=== PATIENT | male | born 1965 | race Caucasian/White ===

== ENCOUNTER → 2020-09-17 14:32 | Outpatient (CLI) | payer OTHER, SELFPAY ==
[2020-09-17] MEDS: COVID-19 VACC #1, MRNA(MOD) 100 MCG/0.5 ML VIAL IM (14:41)
== END ==
PROVIDERS: PCP Nurse Practitioner Family; Visit Provider Internal Medicine
DX: Z23 Encounter for immunization (principal)
CPT/HCPCS: 0011A; 91301

== ENCOUNTER → 2020-10-15 14:14 | Outpatient (CLI) | payer OTHER, SELFPAY ==
[2020-10-15] MEDS: COVID-19 VACC #2, MRNA(MOD) 100 MCG/0.5 ML VIAL IM (14:18)
== END ==
PROVIDERS: PCP Nurse Practitioner Family; Visit Provider Internal Medicine
DX: Z23 Encounter for immunization (principal)
CPT/HCPCS: 0012A; 91301

== ENCOUNTER 2021-08-08 15:50 | Emergency (ER) | payer OTHER, SELFPAY ==
[2021-08-08] VITALS (9 sets, daily range): BP systolic 136–155; BP diastolic 80–95; PULSE 65–79; RESP 16–33; TEMP 36.6; O2SAT 98–100; BMI 26.4
--- NOTE | 2021-08-08 16:04 | DI.RAD.S_ITS ---
PROCEDURE: XR CHEST 2V INDICATIONS: chest pain TECHNIQUE: 2 views of the chest were acquired. COMPARISON: None. FINDINGS: Surgical changes and devices: Right upper quadrant cholecystectomy clips. Lungs and pleura: Lungs are clear. No pleural effusions or pneumothorax. Mediastinum: Mediastinal contours are normal. Heart size is normal. Bones and chest wall: No suspicious bony abnormalities. Soft tissues appear unremarkable. Mild irregularity of the midshaft of the left clavicle is likely secondary to prior trauma. IMPRESSION: No acute cardiopulmonary abnormality. Dictated by: Clifton Ayala M.D. on 08/08/2021 at 16:45 Approved by: Clifton Ayala M.D. on 08/08/2021 at 16:46
[2021-08-08 16:25] LABS: Add Manual Diff / Slide Review NO; Basophils Absolute Auto 100 /uL (0-100); Basophils Percent Auto 1.2 % (0-2); Eosinophils Absolute Auto 0 /uL (0-450); Eosinophils Percent Auto 0.4 % (2-4); Hematocrit 44.7 % (41-53); Lymphocytes Absolute Auto 1100 /uL (1100-4500); Lymphocytes Percent Auto 19.3 % (25-40); Mean Corpuscular HGB Conc 35.8 % (30-36); Mean Corpuscular Hemoglobin 31.6 PG (26-34); Mean Corpuscular Volume 88.3 fL (80-100); Monocytes Absolute Auto 400 /uL (0-900); Monocytes Percent Auto 7.2 % (3-14); Neutrophils Absolute Auto 4000 /uL (1500-7000); Neutrophils Percent Auto 71.9 % (50-75); Platelet Count 187 X10^3/uL (150-400); Red Blood Cell Count 5.06 X10^6/uL (4.5-5.9); Red Cell Distribution Width 12.3 % (11.6-14.8); White Blood Cell Count 5.6 X10^3/uL (4.5-11.0)
[2021-08-08 16:40] LABS: Alanine Aminotransferase 12 IU/L (<50); Albumin 4.9 g/dL (3.5-5.0); Albumin Globulin Ratio 1.5 (1.0-2.8); Alkaline Phosphatase 45 U/L (38-126); Aspartate Aminotransferase 18 IU/L (17-59); BUN Creatinine Ratio 9.9 (6-22); Bilirubin Total 0.6 mg/dL (0.2-1.3); Blood Urea Nitrogen 8 mg/dL (9-20); Calcium 9.4 mg/dL (8.4-10.2); Carbon Dioxide 25 mmol/L (22-32); Chloride 104 mmol/L (98-107); Creatine Kinase 31 U/L (55-170); Estimated Glomerular Filt Rate > 60.0 mL/min (>60); Globulin 3.2 g/dL (1.7-4.1); Glucose 179 mg/dL (70-100); HEMOLYSIS 20 (0-50); Lipase 82 U/L (23-300); Magnesium 1.8 mg/dL (1.6-2.3); Potassium 3.9 mmol/L (3.4-5.1); Sodium 139 mmol/L (137-145); Total Protein 8.1 g/dL (6.3-8.2)
[2021-08-08 16:52] LABS: Troponin I < 0.012 ng/mL (0.01-0.034)
[2021-08-08 17:16] LABS: COVID19 -Nasal RAPID Negative (Negative)
[2021-08-08] MEDS: ASPIRIN 81 MG CHEW TAB 324 MG PO (17:59)
--- NOTE | 2021-08-08 19:04 | ED.CHESTPAIN ---
HPI - Chest Pain General Chief Complaint: Chest Pain Stated Complaint: TROUBLE BREATHING CHEST PRESSURE Time Seen by Provider: 08/08/21 18:21 Source: patient Mode of arrival: Ambulatory Limitations: no limitations Limitations: no limitations History of Present Illness HPI narrative: 56-year-old male comes with complaint of chest pressure that started at 1:30 a.m. this morning. Patient states never resolved but changes with intensity. Body position seems to exacerbate or alleviate it. Lying flat makes it worse as well. He has some sensation of shortness of breath but does not feel like it is worse when he is lying flat. He sometimes gets sweaty at night but not consistently. He has not had any diaphoresis during the day. He has had some mild nausea, no vomiting. No issues with bowel movements or urination. No new swelling in his extremities. He states he is very tired he has not been able to sleep this is been a chronic problem but has been significantly worse recently he states he has been pacing the room. He states that it is worse at night. denies any fevers, cough cold or congestion. He did get use that his [id number]-nu-tqp had but that was at 10:30 a.m. this morning after his symptoms had started. He states he takes Tylenol p.m. for sleep but no other daily medications. He has had multiple orthopedic surgeries including plate in his neck, clavicle, bilateral knee and ankle repairs, cholecystectomy and kidney stones. He is allergic to penicillin. No tobacco, alcohol or illicit. He does not have a primary care physician. Both his parents of cancer, his father from pancreatic and his mother from leukemia/ovarian cancer. No known cardiac, embolic or pulmonary history. Patient does fly regularly for [place] the country. Related Data Home Medications Medication Instructions Recorded Confirmed diphenhydramine 25 1 tab PO BEDTIME 08/08/21 08/08/21 mg-acetaminophen 500 mg tablet (Tylenol PM Extra Strength) Allergies Allergy/AdvReac Type Severity Reaction Status Date / Time Penicillins Allergy Unknown Verified 08/08/21 16:02 Review of Systems Review of Systems ROS Unobtainable: All systems reviewed & are unremarkable except as noted in HPI and below Patient History Social History Smoking Status: Never smoker Smoking Status: Never smoker alcohol intake frequency: other Substance Use Type: marijuana Exam Narrative Exam Narrative: GENERAL: Alert and oriented x three, male in mild distress. HEENT: Head normocephalic, atraumatic, EOMI, pupils reactive, face symmetric, moist mucous membranes NECK: Supple, full range of motion CARDIOVASCULAR: Regular rate and rhythm without murmurs, rubs or gallops. Non reproducible chest pain. RESPIRATORY: Breath sounds equal bilaterally, patient had a single wheeze on the left, no rales or or rhonchi. No tachypnea accessory muscle use. Patient speaks in full sentences. ABDOMEN: Soft, nontender. Nondistended. Normoactive bowel sounds all 4 quadrants. No guarding or rebound, rigidity, no mass : No CVA tenderness EXTREMITIES: Normal range of motion, no clubbing or edema. Neurovascularly intact NEUROLOGICAL: Cranial nerves II through XII grossly intact. Moving all extremities SKIN: Warm, dry, no petechiae, no rashes or lesions. Initial Vital Signs Initial Vital Signs: Vital Signs Temperature 98 F 08/08/21 15:59 Pulse Rate 79 08/08/21 15:59 Respiratory Rate 17 08/08/21 15:59 Blood Pressure 151/95 H 08/08/21 15:59 Pulse Oximetry 99 08/08/21 15:59 Scores HEART Score Heart Score history: Slightly Suspicious Heart Score EKG: Normal Heart Score Age: 45-64 years old Heart Score risk factors: No known risk factors Heart Score troponin: < or = to normal limit Heart Score Total: 1 PERC Score Age greater than or equal to 50 years: Yes Heart rate greater than or equal to 100 bpm: No Room Air O2 Sat less than 95%: No Unilateral leg swelling: No Recent trauma or surgery: No Hemoptysis: No Prior PE or DVT: No Hormone Use: No Total PERC Score: 1 Course Orders Ordered: ED Orders 08/08/21 18:39 Troponin I Stat 08/08/21 19:31 EKG-12 Lead Stat 08/09/21 03:00 CT Stroke Stat Basic Metabolic Panel Stat Complete Blood Count AUTO DIFF Stat Ethanol (ETOH) Stat Troponin & CK Cardiac Panel Stat Urine Drug Screen, Rapid Stat EKG-12 Lead Stat 08/09/21 03:01 CT angio head and neck Stat Partial Thromboplastin Time Stat Prothrombin Time INR Stat Sodium Chloride (Normal Saline 0.9%) 1,000 mls @ 150 mls/hr IV CONT TEDDY Nitroglycerin (Nitroglycerin 0.4 Mg Sl Tab) 0.4 mg SL [id number] PRN PRN Reason: Chest Pain Discontinued Medications Albuterol (Albuterol Hfa Mdi 60 Puff/8 Gm Inhaler) 2 puff INH NOW ONE Stop: 08/08/21 19:24 Last Admin: 08/08/21 19:47 Dose: Not Given Documented by: ADEEL Albuterol (Albuterol Hfa Prepack) 1 box MISC SEEINSTR ONE Stop: 08/08/21 19:43 Last Admin: 08/08/21 19:47 Dose: 1 box Documented by: ADEEL Aspirin (Aspirin 81 Mg Chew Tab) 324 mg PO NOW ONE Stop: 08/08/21 16:05 Last Admin: 08/08/21 17:59 Dose: 324 mg Documented by: SASKIA Reevaluation(s) Reevaluation #1: Patient had albuterol which improved his wheeze. Patient has some improvement but not resolution of his symptoms. Vital Signs Vital signs: Vital Signs - 8 hr 08/08/21 19:30 08/08/21 19:48 08/08/21 20:00 Pulse Rate 65 72 73 Respiratory Rate 23 16 33 H Pulse Oximetry 98 99 MDM - Chest Pain Lab Data Result diagrams: 08/08/21 16:20 08/08/21 16:20 Labs: Lab Results 08/08/21 08/08/21 08/08/21 Range/Units 16:20 16:20 16:20 WBC 5.6 (4.5-11.0) X10^3/uL RBC 5.06 (4.5-5.9) X10^6/uL Hgb 16.0 (13.5-17.5) g/dL Hct 44.7 (41-53) % MCV 88.3 (80-100) fL MCH 31.6 (26-34) PG MCHC 35.8 (30-36) % RDW 12.3 (11.6-14.8) % Plt Count 187 (150-400) X10^3/uL Neut % (Auto) 71.9 (50-75) % Lymph % (Auto) 19.3 L (25-40) % Dixon % (Auto) 7.2 (3-14) % Eos % (Auto) 0.4 L (2-4) % Baso % (Auto) 1.2 (0-2) % Neut # (Auto) 4000 (2785-9708) /uL Lymph # (Auto) 1100 (1101-4114) /uL Dixon # (Auto) 400 (0-900) /uL Eos # (Auto) 0 (0-450) /uL Baso # (Auto) 100 (0-100) /uL D-Dimer (<230) ng/mL Sodium 139 (137-145) mmol/L Potassium 3.9 (3.4-5.1) mmol/L Chloride 104 (98-107) mmol/L Carbon Dioxide 25 (22-32) mmol/L BUN 8 L (9-20) mg/dL Creatinine 0.81 (0.66-1.25) mg/dL Estimated GFR > 60.0 (>60) mL/min BUN/Creatinine Ratio 9.9 (6-22) Glucose 179 H (70-100) mg/dL Calcium 9.4 (8.4-10.2) mg/dL Magnesium 1.8 (1.6-2.3) mg/dL Total Bilirubin 0.6 (0.2-1.3) mg/dL AST 18 (17-59) IU/L ALT 12 (<50) IU/L Alkaline Phosphatase 45 (38-126) U/L Total Creatine Kinase 31 L (55-170) U/L CK-MB (CK-2) TNP CK-MB (CK-2) Rel Index TNP Troponin I < 0.012 (0.01-0.034) ng/mL Total Protein 8.1 (6.3-8.2) g/dL Albumin 4.9 (3.5-5.0) g/dL Globulin 3.2 (1.7-4.1) g/dL Albumin/Globulin Ratio 1.5 (1.0-2.8) Lipase 82 (23-300) U/L SARS-CoV-2 (PCR) Negative (Negative) 08/08/21 08/08/21 Range/Units 16:20 18:39 WBC (4.5-11.0) X10^3/uL RBC (4.5-5.9) X10^6/uL Hgb (13.5-17.5) g/dL Hct (41-53) % MCV (80-100) fL MCH (26-34) PG MCHC (30-36) % RDW (11.6-14.8) % Plt Count (150-400) X10^3/uL Neut % (Auto) (50-75) % Lymph % (Auto) (25-40) % Dixon % (Auto) (3-14) % Eos % (Auto) (2-4) % Baso % (Auto) (0-2) % Neut # (Auto) (9210-0210) /uL Lymph # (Auto) (2882-3364) /uL Dixon # (Auto) (0-900) /uL Eos # (Auto) (0-450) /uL Baso # (Auto) (0-100) /uL D-Dimer < 200 (<230) ng/mL Sodium (137-145) mmol/L Potassium (3.4-5.1) mmol/L Chloride (98-107) mmol/L Carbon Dioxide (22-32) mmol/L BUN (9-20) mg/dL Creatinine (0.66-1.25) mg/dL Estimated GFR (>60) mL/min BUN/Creatinine Ratio (6-22) Glucose (70-100) mg/dL Calcium (8.4-10.2) mg/dL Magnesium (1.6-2.3) mg/dL Total Bilirubin (0.2-1.3) mg/dL AST (17-59) IU/L ALT (<50) IU/L Alkaline Phosphatase (38-126) U/L Total Creatine Kinase (55-170) U/L CK-MB (CK-2) CK-MB (CK-2) Rel Index Troponin I < 0.012 (0.01-0.034) ng/mL Total Protein (6.3-8.2) g/dL Albumin (3.5-5.0) g/dL Globulin (1.7-4.1) g/dL Albumin/Globulin Ratio (1.0-2.8) Lipase (23-300) U/L SARS-CoV-2 (PCR) (Negative) Imaging Data Chest x-ray: Radiologist's Impression: Donny Forte??56??M??1965 ? Allergy/Adv: Penicillins Close Chest X-Ray (Signed) Clifton Ayala - 08/08/21 Launch?[address] [address] XRay Report Signed Patient: Donny Forte MR#: [id number] : 1965 Acct:[id number] Age/Sex: 56 / M Date of Service: 08/08/21 Loc: ED Accession Number: [id number] ?? Procedure: XR chest 2V Ordering Provider: Xi Mcmahan D.O. PROCEDURE:? XR CHEST 2V ? INDICATIONS:? chest pain ? TECHNIQUE:? 2 views of the chest were acquired.? ? COMPARISON:? None. ? FINDINGS:? ? Surgical changes and devices:? Right upper quadrant cholecystectomy clips.? ? Lungs and pleura:? Lungs are clear.? No pleural effusions or pneumothorax.? ? Mediastinum:? Mediastinal contours are normal.? Heart size is normal.? ? Bones and chest wall:? No suspicious bony abnormalities.? Soft tissues appear unremarkable.? Mild irregularity of the midshaft of the left clavicle is likely secondary to prior trauma.? ? IMPRESSION:? No acute cardiopulmonary abnormality. ? ? Dictated by: Clifton Ayala M.D. on 08/08/2021 at 16:45 ? ? Approved by: Clifton Ayala M.D. on 08/08/2021 at 16:46? ECG Data Attestation: I personally reviewed and interpreted this ECG as follows: Prior ECG tracings: not available for review Interpretation: Sinus rhythm rate of 70 NV 152 QRS of 92 and QTC of 438. Q-wave in lead 3. ST elevation or depression is appreciated. Patient does not have priors for comparison. EKG2. Sinus rhythm, rate of 60 5p are 160 QRS of [address]TC [address] No acute [address] changes appreciated. Patient has prior EKG from earlier today which has appears similar. MDM Narrative Medical decision making narrative: This is a 56-year-old male who comes with complaint of trouble breathing and chest pressure. Patient's EKG, troponins and chest x-ray show no acute changes. Major lab abnormalities does fly regularly so D-dimer was included which is negative. Patient does not have any other vital sign changes that clearly would indicate to get CT angiography at this time. He did have some mild wheeze was given some albuterol here which was helpful. At this time patient seems appropriate for discharge home discussed with patient and both feel comfortable with this plan. Discharge Plan Departure Patient Disposition: Home Clinical Impression: Atypical chest pain Instructions: DI for Atypical Chest Pain Activity Restrictions/Additional Instructions: Follow-up with your physician for recheck. You did have some mild on exam today. You may use albuterol 2 puffs every 4-6 hours as needed if you find this helpful. It may be helpful to also take an xoyk-xid-ghhfeti antihistamine such as Claritin or loratadine once daily. Please return for fevers, new or worsening chest pain, shortness of breath, passing out, persistent vomiting, new swelling in your extremities or other new or concerning symptoms. Prescriptions: No Action diphenhydramine-acetaminophen [Tylenol PM Extra Strength] 25-500 mg Tablet 1 tab PO BEDTIME 0RF Referrals: Tiffanie Shepherd ARNP [Primary Care Provider] -
[2021-08-08 19:23] LABS: Troponin I < 0.012 ng/mL (0.01-0.034)
[2021-08-08] MEDS: ALBUTEROL HFA PREPACK 1 BOX MISC (19:47)
[2021-08-08 20:04] LABS: D Dimer < 200 ng/mL (<230)
--- NOTE | 2021-08-09 03:00 | DI.CT.S_ITS ---
PROCEDURE: CT STROKE INDICATIONS: speech changes, chest paijn TECHNIQUE: Noncontrast 4.5 mm thick angled axial sections acquired from the foramen magnum to the vertex, with coronal reformats. For radiation dose reduction, the following was used: automated exposure control, adjustment of mA and/or kV according to patient size. COMPARISON: None. FINDINGS: Image quality: Excellent. CSF spaces: Basal cisterns are patent. No extra-axial fluid collections. Ventricles are normal in size and shape. Brain: No midline shift. No intracranial masses or hemorrhage. Pierre-white matter interface is normal. Skull and face: Calvarium and visualized facial bones are intact, without suspicious lesions. Sinuses: Visualized sinuses and mastoids are clear. IMPRESSION: CT head without acute intracranial abnormalities. Preliminary report was available at 3:41 a.m.PST This study fulfills neurological imaging criteria for inclusion or exclusion of acute stroke therapies based on available published neurological imaging guidelines. Dictated by: Roberto Nicole M.D. on 08/09/2021 at 7:04 Approved by: Roberto Nicole M.D. on 08/09/2021 at 7:05
--- NOTE | 2021-08-09 03:01 | DI.CT.S_ITS ---
PROCEDURE: CT ANGIO HEAD AND NECK INDICATIONS: speech changes, chest pain TECHNIQUE: After the administration of intravenous contrast, 1 mm thick sections acquired from the aortic arch through the [place]. Post-contrast 4.5 mm thick sections then re-acquired from the foramen magnum to the vertex. 3-dimensional smkpgck-axmohjrjh-hvyogxcdmx (MIP) and/or volume rendering reformats were acquired of the central intracranial vasculature and neck separately. COMPARISON: None. FINDINGS: Image quality: Excellent. BRAIN: CSF spaces: Ventricles are normal in size and shape. Basal cisterns are patent. No extra-axial fluid collections. Brain: No midline shift. No intracranial bleeds or masses. Pierre-white matter interface appears intact. Skull and face: Calvarium and facial bones appear intact, without suspicious lesions. Orbits appear normal. Sinuses: Sinuses and mastoids are clear. HEAD CT ANGIOGRAPHY: Anterior circulation: Intracranial internal carotid arteries are normal in size and flow. The flow within the paired anterior cerebral arteries is normal and symmetric. The flow within the middle cerebral arteries is normal and symmetric. The anterior communicating artery is seen. No aneurysms are seen. Posterior circulation: Visualized portions of the vertebral arteries demonstrate normal caliber, and join to form a normal appearing basilar artery. Flow within the posterior cerebral arteries is normal and symmetric. No aneurysms are seen. There is a slight left vertebral artery dominance. 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 The origins of the common carotid arteries appear patent. The common carotid arteries demonstrate normal caliber and courses. The bifurcation regions are both widely patent. The internal carotid arteries demonstrate normal calibers and courses. Posterior circulation: The origins of the vertebral arteries both appear widely patent. The more superior extracranial portions of both vertebral arteries also demonstrate normal courses and calibers. They join to form a normal appearing basilar artery. Soft tissues: Visualized neck soft tissues demonstrate no suspicious abnormalities. 7 mm focus of low attenuation is present in the left thyroid lobe. Bones: No suspicious bony lesions. Visualized cervical spine appears normally aligned. Anterior fusion is present at C3-4. IMPRESSION: 1. No acute intracranial process. 2. No areas of hemodynamically significant stenosis, vascular occlusion or aneurysmal dilation within the anterior circulation. 3. No areas of hemodynamically significant stenosis, vascular occlusion or aneurysmal dilation within the posterior circulation. 4. No areas of hemodynamically significant stenosis, vascular occlusion or aneurysmal dilation within the neck vasculature. 5. Low-attenuation focus within the left thyroid lobe possibly cyst or adenoma. No priors are available for comparison. Thyroid ultrasound may be obtained as clinically indicated on a nonemergent basis for further evaluation. The above findings are concordant with preliminary report. Any quantitative measurements of stenosis were performed using NASCET criteria. Dictated by: Carly Reina M.D. on 08/09/2021 at 8:35 Approved by: Carly Reina M.D. on 08/09/2021 at 9:45
--- NOTE | 2021-08-09 03:05 | ED.NEUROSD ---
HPI - Neuro Symptoms/Deficit General Chief Complaint: Chest Pain Stated Complaint: TROUBLE BREATHING CHEST PRESSURE Time Seen by Provider: 08/08/21 18:21 Source: patient Mode of arrival: Ambulatory Limitations: no limitations History of Present Illness HPI Narrative: This is a 56-year-old male who was seen earlier this evening by myself. He is brought in this morning with continued chest pressure sensation of shortness of breath but also his states that his speech was slurred any had difficulty with word finding. She states he was last normal at 10:00 p.m. when they went to bed. Patient was up and down a lot sleeping but she states that he was slurred, could not really understand any of his words. He seemed agitated. Patient does seem to be slower in his speech is slightly dysarthric compared to when he was seen earlier today. He does still complain of pressure in his chest, shortness of breath. He denies headache or vision changes. He denies numbness, tingling or weakness. His states that his gait was more plotting but steady on the way to the car. Patient has had significant difficulty with insomnia he took 3 tablets of Tylenol p.m. this evening before bed. He is not on any other daily medications but has not seen a primary care in some time. He has had multiple orthopedic surgeries, cholecystectomy treatment for kidney stones. Allergic to penicillin. On Anticoagulants: No Related Data Home Medications Medication Instructions Recorded Confirmed diphenhydramine 25 1 tab PO BEDTIME 08/08/21 08/08/21 mg-acetaminophen 500 mg tablet (Tylenol PM Extra Strength) Allergies Allergy/AdvReac Type Severity Reaction Status Date / Time Penicillins Allergy Unknown Verified 08/08/21 16:02 Review of Systems Review of Systems ROS Unobtainable: All systems reviewed & are unremarkable except as noted in HPI and below Hematologic/Lymphatic On Anticoagulants: No Patient History Social History Smoking Status: Never smoker Smoking Status: Never smoker alcohol intake frequency: other Substance Use Type: marijuana Exam Narrative Exam Narrative: GEN: well nourished, well appearing male, alert and oriented x 3, patient appears to be in mild distress. HEENT: Atraumatic, pupils are equal round reactive to light, extraocular movements are intact, nares are clear, TMs are clear with no fluid, there is no conjunctival pallor. Throat is clear without any exudates, erythema, tonsillar enlargement or uvular deviation, no facial droop. HEART: Regular rate and rhythm without murmur, clicks, rubs. Pulses are equal in upper and lower extremities LUNGS:Lungs clear to auscultation, no wheezes, rales, crackles, chest moves symmetrically, no tachypnea accessory muscle use. ABD:bowel sounds normal, soft, non-tender, no guarding, rebound, rigidity, no masses noted, no hepatosplenomegaly :No CVA tenderness MSCL: Non-tender, no muscle atrophy, muscles strength 5/5 upper and lower extremities, but has drift, full range of motion NEURO:CN 2-12 intact, sensation normal, reflexes 2/4 upper and lower extremities. finger nose finger test normal, heel pennington test normal, patient has slight tremor of the left upper extremity. SKIN: No warmth, erythema or other skin changes. Initial Vital Signs Initial Vital Signs: Vital Signs Temperature 98 F 08/08/21 15:59 Pulse Rate 79 08/08/21 15:59 Respiratory Rate 17 08/08/21 15:59 Blood Pressure 151/95 H 08/08/21 15:59 Pulse Oximetry 99 08/08/21 15:59 Scores NIH Stroke Scale Level of Conciousness: Alert, keenly responsive Ask month/age: Answers both questions correctly. Open/close eyes, close hand: Performs both tasks correctly Best gaze horizontal: Normal Visual grider: No visual loss Facial palsy: Normal symetrical movement Left arm drift: No drift for full 10 sec Right arm drift: Drifts down, not to bed Left leg drift: No drift for full 5 sec Right leg drift: No drift for full 5 sec Limb ataxia: Absent Sensory on face/arms/legs: Mild to moderate sensory loss, can tell touch Best language: No aphasia, normal Dysarthria: Mild to mod,some slurring Extinction or inattention: No abnormality Total NIH Stroke scale score: 3 Course Orders Ordered: ED Orders 08/08/21 18:39 Troponin I Stat 08/08/21 19:31 EKG-12 Lead Stat 08/09/21 03:00 CT Stroke Stat Basic Metabolic Panel Stat Complete Blood Count AUTO DIFF Stat Ethanol (ETOH) Stat Troponin & CK Cardiac Panel Stat Urine Drug Screen, Rapid Stat EKG-12 Lead Stat 08/09/21 03:01 CT angio head and neck Stat Partial Thromboplastin Time Stat Prothrombin Time INR Stat Sodium Chloride (Normal Saline 0.9%) 1,000 mls @ 150 mls/hr IV CONT TEDDY Nitroglycerin (Nitroglycerin 0.4 Mg Sl Tab) 0.4 mg SL [id number] PRN PRN Reason: Chest Pain Discontinued Medications Albuterol (Albuterol Hfa Mdi 60 Puff/8 Gm Inhaler) 2 puff INH NOW ONE Stop: 08/08/21 19:24 Last Admin: 08/08/21 19:47 Dose: Not Given Documented by: ADEEL Albuterol (Albuterol Hfa Prepack) 1 box MISC SEEINSTR ONE Stop: 08/08/21 19:43 Last Admin: 08/08/21 19:47 Dose: 1 box Documented by: ADEEL Aspirin (Aspirin 81 Mg Chew Tab) 324 mg PO NOW ONE Stop: 08/08/21 16:05 Last Admin: 08/08/21 17:59 Dose: 324 mg Documented by: SASKIA Vital Signs Vital signs: Vital Signs - 8 hr 08/08/21 19:30 08/08/21 19:48 08/08/21 20:00 Pulse Rate 65 72 73 Respiratory Rate 23 16 33 H Pulse Oximetry 98 99 MDM - Neuro Symptoms/Deficit Lab Data Result diagrams: 08/08/21 16:20 08/08/21 16:20 Labs: Lab Results 08/08/21 08/08/21 08/08/21 Range/Units 16:20 16:20 16:20 WBC 5.6 (4.5-11.0) X10^3/uL RBC 5.06 (4.5-5.9) X10^6/uL Hgb 16.0 (13.5-17.5) g/dL Hct 44.7 (41-53) % MCV 88.3 (80-100) fL MCH 31.6 (26-34) PG MCHC 35.8 (30-36) % RDW 12.3 (11.6-14.8) % Plt Count 187 (150-400) X10^3/uL Neut % (Auto) 71.9 (50-75) % Lymph % (Auto) 19.3 L (25-40) % [place] % (Auto) 7.2 (3-14) % Eos % (Auto) 0.4 L (2-4) % Baso % (Auto) 1.2 (0-2) % Neut # (Auto) 4000 (3078-1286) /uL Lymph # (Auto) 1100 (0126-8512) /uL [place] # (Auto) 400 (0-900) /uL Eos # (Auto) 0 (0-450) /uL Baso # (Auto) 100 (0-100) /uL D-Dimer (<230) ng/mL Sodium 139 (137-145) mmol/L Potassium 3.9 (3.4-5.1) mmol/L Chloride 104 (98-107) mmol/L Carbon Dioxide 25 (22-32) mmol/L BUN 8 L (9-20) mg/dL Creatinine 0.81 (0.66-1.25) mg/dL Estimated GFR > 60.0 (>60) mL/min BUN/Creatinine Ratio 9.9 (6-22) Glucose 179 H (70-100) mg/dL Calcium 9.4 (8.4-10.2) mg/dL Magnesium 1.8 (1.6-2.3) mg/dL Total Bilirubin 0.6 (0.2-1.3) mg/dL AST 18 (17-59) IU/L ALT 12 (<50) IU/L Alkaline Phosphatase 45 (38-126) U/L Total Creatine Kinase 31 L (55-170) U/L CK-MB (CK-2) TNP CK-MB (CK-2) Rel Index TNP Troponin I < 0.012 (0.01-0.034) ng/mL Total Protein 8.1 (6.3-8.2) g/dL Albumin 4.9 (3.5-5.0) g/dL Globulin 3.2 (1.7-4.1) g/dL Albumin/Globulin Ratio 1.5 (1.0-2.8) Lipase 82 (23-300) U/L SARS-CoV-2 (PCR) Negative (Negative) 08/08/21 08/08/21 Range/Units 16:20 18:39 WBC (4.5-11.0) X10^3/uL RBC (4.5-5.9) X10^6/uL Hgb (13.5-17.5) g/dL Hct (41-53) % MCV (80-100) fL MCH (26-34) PG MCHC (30-36) % RDW (11.6-14.8) % Plt Count (150-400) X10^3/uL Neut % (Auto) (50-75) % Lymph % (Auto) (25-40) % [place] % (Auto) (3-14) % Eos % (Auto) (2-4) % Baso % (Auto) (0-2) % Neut # (Auto) (2060-0565) /uL Lymph # (Auto) (1609-1087) /uL [place] # (Auto) (0-900) /uL Eos # (Auto) (0-450) /uL Baso # (Auto) (0-100) /uL D-Dimer < 200 (<230) ng/mL Sodium (137-145) mmol/L Potassium (3.4-5.1) mmol/L Chloride (98-107) mmol/L Carbon Dioxide (22-32) mmol/L BUN (9-20) mg/dL Creatinine (0.66-1.25) mg/dL Estimated GFR (>60) mL/min BUN/Creatinine Ratio (6-22) Glucose (70-100) mg/dL Calcium (8.4-10.2) mg/dL Magnesium (1.6-2.3) mg/dL Total Bilirubin (0.2-1.3) mg/dL AST (17-59) IU/L ALT (<50) IU/L Alkaline Phosphatase (38-126) U/L Total Creatine Kinase (55-170) U/L CK-MB (CK-2) CK-MB (CK-2) Rel Index Troponin I < 0.012 (0.01-0.034) ng/mL Total Protein (6.3-8.2) g/dL Albumin (3.5-5.0) g/dL Globulin (1.7-4.1) g/dL Albumin/Globulin Ratio (1.0-2.8) Lipase (23-300) U/L SARS-CoV-2 (PCR) (Negative) ECG Data Attestation: I personally reviewed and interpreted this ECG as follows: Prior ECG tracings: available for review Interpretation: Sinus rhythm rate of 68, QRS 86 QTC of 448. No acute ST elevation depression noted. Patient has prior EKG from yesterday 08/08/2021 less than 12 hours ago but appears molar. Stroke Core Measures Exclusion Criteria TPA in CVA: Symptom Onset >3 or 4.5 Hours Discharge Plan Departure Patient Disposition: Home Clinical Impression: Atypical chest pain Instructions: DI for Atypical Chest Pain Activity Restrictions/Additional Instructions: Follow-up with your physician for recheck. You did have some mild on exam today. You may use albuterol 2 puffs every 4-6 hours as needed if you find this helpful. It may be helpful to also take an [id number] antihistamine such as Claritin or loratadine once daily. Please return for fevers, new or worsening chest pain, shortness of breath, passing out, persistent vomiting, new swelling in your extremities or other new or concerning symptoms. Prescriptions: No Action diphenhydramine-acetaminophen [Tylenol PM Extra Strength] 25-500 mg Tablet 1 tab PO BEDTIME 0RF Referrals: Tiffanie Shepherd ARNP [Primary Care Provider] -
[2021-08-09 03:17] LABS: BUN Creatinine Ratio 11.4 (6-22); Blood Urea Nitrogen 9 mg/dL (9-20); Calcium 10.3 mg/dL (8.4-10.2); Carbon Dioxide 28 mmol/L (22-32); Chloride 102 mmol/L (98-107); Creatine Kinase 40 U/L (55-170); Estimated Glomerular Filt Rate > 60.0 mL/min (>60); Ethanol (ETOH) < 10 mg/dL; Glucose 130 mg/dL (70-100); HEMOLYSIS 54 (0-50); Potassium 3.4 mmol/L (3.4-5.1); Sodium 144 mmol/L (137-145)
[2021-08-09 03:26] LABS: Basophils Absolute Auto 100 /uL (0-100); Basophils Percent Auto 0.9 % (0-2); Eosinophils Absolute Auto 100 /uL (0-450); Eosinophils Percent Auto 0.8 % (2-4); Hematocrit 48.4 % (41-53); Hemoglobin 17.2 g/dL (13.5-17.5); Lymphocytes Absolute Auto 2600 /uL (1100-4500); Lymphocytes Percent Auto 38.8 % (25-40); Mean Corpuscular HGB Conc 35.5 % (30-36); Mean Corpuscular Hemoglobin 31.7 PG (26-34); Mean Corpuscular Volume 89.1 fL (80-100); Monocytes Absolute Auto 500 /uL (0-900); Monocytes Percent Auto 7.7 % (3-14); Neutrophils Absolute Auto 3500 /uL (1500-7000); Neutrophils Percent Auto 51.8 % (50-75); Red Blood Cell Count 5.43 X10^6/uL (4.5-5.9); Red Cell Distribution Width 12.6 % (11.6-14.8); White Blood Cell Count 6.7 X10^3/uL (4.5-11.0)
[2021-08-09 03:27] LABS: Add Manual Diff / Slide Review SLIDE REVIEW
[2021-08-09 03:29] LABS: Troponin I < 0.012 ng/mL (0.01-0.034)
[2021-08-09 03:42] LABS: NT-proBNP (BNP-Adult 18+) 38 pg/mL (<125)
[2021-08-09 03:49] LABS: INR 1.1 (0.9-1.3); Prothrombin Time 12.4 SECONDS (10.1-12.7)
[2021-08-09 03:52] LABS: PTT Partial Thromboplastin Tim 20 SECONDS (26.4-36.2)
[2021-08-09 04:20] LABS: RBC Morphology Normal Morphology
== END 2021-08-08 20:27 | disposition home or self-care (01) ==
PROVIDERS: Emergency Medicine; Emergency Provider Emergency Medicine; PCP Nurse Practitioner Family
DX: R07.89 Other chest pain (principal); Z20.822 Contact with and (suspected) exposure to COVID-19
CPT/HCPCS: 36415; 71046; 80048; 80053; 80320; 82550; 83690; 83735; 83880; 84484; 85025; 85379; 85610; 85730; 87635; 93005; 93010; 94640; 99284; C9803; A9270

== ENCOUNTER 2021-08-09 02:40 | Observation (INO) | payer OTHER, SELFPAY ==
[2021-08-09] VITALS (9 sets, daily range): BP systolic 108–172; BP diastolic 61–93; PULSE 63–78; RESP 15–18; TEMP 36.4–36.8; O2SAT 97–100; BMI 25.6
--- NOTE | 2021-08-09 03:13 | ED.NEUROSD ---
HPI - Neuro Symptoms/Deficit General Chief Complaint: Neuro Symptoms/Deficit Stated Complaint: SOB Time Seen by Provider: 08/09/21 02:50 Source: patient and family Mode of arrival: Ambulatory Limitations: no limitations History of Present Illness HPI Narrative: HPI Narrative: This is a 56-year-old male who was seen earlier this evening by myself.? He is brought in this morning with continued chest pressure sensation of shortness of breath but also his states that his speech was slurred any had difficulty with word finding.? She states he was last normal at 10:00 p.m. when they went to bed.? Patient was up and down a lot sleeping but she states that he was slurred, could not really understand any of his words.? He seemed agitated.? Patient does seem to be slower in his speech is slightly dysarthric compared to when he was seen earlier today.? He does still complain of pressure in his chest, shortness of breath.? He denies headache or vision changes.? He denies numbness, tingling or weakness.? His states that his gait was more plotting but steady on the way to the car.? Patient has had significant difficulty with insomnia he took 3 tablets of Tylenol p.m. this evening before bed.? He is not on any other daily medications but has not seen a primary care in some time.? He has had multiple orthopedic surgeries, cholecystectomy treatment for kidney stones.? Allergic to penicillin. On Anticoagulants: No On Anticoagulants: No Related Data Home Medications Medication Instructions Recorded Confirmed diphenhydramine 25 1 tab PO BEDTIME 08/08/21 08/08/21 mg-acetaminophen 500 mg tablet (Tylenol PM Extra Strength) Allergies Allergy/AdvReac Type Severity Reaction Status Date / Time Penicillins Allergy Unknown Verified 08/08/21 16:02 Review of Systems Review of Systems ROS Unobtainable: All systems reviewed & are unremarkable except as noted in HPI and below Hematologic/Lymphatic On Anticoagulants: No Patient History Social History Smoking Status: Never smoker Smoking Status: Never smoker alcohol intake frequency: other Substance Use Type: marijuana Exam Narrative Exam Narrative: Narrative Exam Narrative: GEN: well nourished, well appearing male, alert and oriented x 3, patient appears to be in mild distress. HEENT: Atraumatic, pupils are equal round, miotic, extraocular movements are intact, nares are clear, TMs are clear with no fluid, there is no conjunctival pallor.? Throat is clear without any exudates, erythema, tonsillar enlargement or uvular deviation, no facial droop. HEART: Regular rate and rhythm without murmur, clicks, rubs. Pulses are equal in upper and lower extremities LUNGS:Lungs clear to auscultation, no wheezes, rales, crackles, chest moves symmetrically, no tachypnea accessory muscle use. ABD:bowel sounds normal, soft, non-tender, no guarding, rebound, rigidity, no masses noted, no hepatosplenomegaly :No CVA tenderness MSCL: Non-tender, no muscle atrophy, muscles strength 5/5 upper and lower extremities, but has drift,? full range of motion NEURO:CN 2-12 intact, sensation normal except for right cheek. finger nose finger test normal, heel pennington test normal, patient has slight tremor of the left upper extremity which is new compared to earlier today. + for dysarthria which is new compared to earlier ER visit. SKIN:? No warmth, erythema or other skin changes. Initial Vital Signs Initial Vital Signs: Vital Signs Pulse Rate 71 08/09/21 02:59 Respiratory Rate 16 08/09/21 02:59 Blood Pressure 172/93 H 08/09/21 02:59 Pulse Oximetry 98 08/09/21 02:59 Scores NIH Stroke Scale Level of Conciousness: Alert, keenly responsive Ask month/age: Answers both questions correctly. Open/close eyes, close hand: Performs both tasks correctly Best gaze horizontal: Normal Visual grider: No visual loss Facial palsy: Normal symetrical movement Left arm drift: No drift for full 10 sec Right arm drift: Drifts down, not to bed Left leg drift: No drift for full 5 sec Right leg drift: No drift for full 5 sec Limb ataxia: Absent Sensory on face/arms/legs: Mild to moderate sensory loss, can tell touch Best language: No aphasia, normal Dysarthria: Mild to mod,some slurring Extinction or inattention: No abnormality Total NIH Stroke scale score: 3 Course Orders Ordered: ED Orders 08/09/21 03:28 COVID19 -Nasal swab/Pre-Proc Stat 08/09/21 05:00 COVID19 - ADMIT (METAL NEUTRALIZER swab/PCR) Stat Acetaminophen (Acetaminophen 325 Mg Tablet) 650 mg PO Q6HR [facility] Aspirin (Aspirin Ec 81 Mg Tablet) 81 mg PO DAILY [facility] Atorvastatin Calcium (Atorvastatin 20 Mg Tablet) 80 mg PO BEDTIME TEDDY Clopidogrel Bisulfate (Clopidogrel 75 Mg Tablet) 75 mg PO DAILY [facility] Enoxaparin Sodium (Enoxaparin 40 Mg/0.4 Ml Syringe) 40 mg SUBCUT DAILY [facility] Naloxone HCl (Naloxone 0.4 Mg/Ml Vial) 0.2 mg IV Q2MIN PRN PRN Reason: Opiate Reversal Ondansetron HCl (Ondansetron 4 Mg/2 Ml Inj) 4 mg IV Q8HR PRN PRN Reason: Nausea And Vomiting Discontinued Medications Aspirin (Aspirin 81 Mg Chew Tab) 324 mg PO NOW ONE Stop: 08/09/21 04:18 Last Admin: 08/09/21 05:44 Dose: Not Given Documented by: RIANNA Clopidogrel Bisulfate (Clopidogrel 75 Mg Tablet) 75 mg PO DAILY [facility] Morphine Sulfate (Morphine 4 Mg/Ml Inj) 4 mg IV NOW ONE Stop: 08/09/21 04:26 Last Admin: 08/09/21 04:35 Dose: 4 mg Documented by: CTRYESSY Reevaluation(s) Reevaluation #1: Patient reviewed head CT and CT angio as well as findings today. Patient received aspirin about 12 hours earlier so did not repeat. He is hypertensive does have chest pain but I am reluctant to give nitro with negative troponin no acute EKG changes and with stroke-like symptoms want to avoid rapidly lowering his blood pressure. Patient was given morphine. Consultations Consultation #1: [facility] contacted for critical read. Head Ct and CTA has been picked. Time: 03:39 Consultation #2: HEDY Elias, hospitalist. Accepts for observation for chest pain as well as stroke. Patient does have new neurologic changes is compared to earlier today. He had head CT as well as CT angio which does include the arch which shows no acute changes today. Patient was not given aspirin as he had full dose aspirin within the last 12 hours. And he Curt asked that we give Plavix today. She also request the admit COVID. We did discuss that troponins have been negative x3 with no acute EKG changes x3 during stay. Patient is more hypertensive now than he was on his earlier visit. Vital Signs Vital signs: Vital Signs - 8 hr 08/09/21 02:59 08/09/21 04:34 08/09/21 04:35 Pulse Rate 71 78 75 Respiratory Rate 16 18 15 Blood Pressure 172/93 H 171/84 H 158/82 H Pulse Oximetry 98 100 97 08/09/21 04:40 Pulse Rate 74 Respiratory Rate 17 Blood Pressure 157/88 H Pulse Oximetry 99 MDM - Neuro Symptoms/Deficit Lab Data Labs: Lab Results 08/09/21 Range/Units 03:28 SARS-CoV-2 (PCR) Negative (Negative) Point of Care Testing Glucose POC [address] scan - head: Radiologist's Impression: No acute intracranial findings. Remote lacunar infarct right head of the basal ganglia. CTA - brain/neck: Radiologist's Impression: Patient neck CTA. Hypodense nodule left lobe of the thyroid gland likely a cyst but nonspecific. ECG Data Attestation: I personally reviewed and interpreted this ECG as follows: Interpretation: Sinus rhythm, rate of 68 NH 160 QRS 86 and QTC of 448. No acute ST changes appreciated. Patient has prior from 08/08/2021 which appears similar. [facility] Narrative Medical decision making narrative: This is a 56-year-old male who comes to the emergency department with complaint of changes to speech with dysarthria and what his describing what sounds like word salad. That had improved patient did have changes to his speech here although he was able to articulate his situation. He did take 75mg Benadryl this evening but his pupils or mitotic rather than having mydriasis which would be expected. Patient is able to have a conversation but his mentation is slightly different. He continues to describe chest pressure and shortness of breath. CT angiography does not show acute changes to the upper arch, no blockages. Head CT non con was negative as well. Patient is more hypertensive on this visit than his recent 1. Labs otherwise showed no major changes. No acute EKG changes. Patient did have a D-dimer on his most recent visit so this was not repeated. Patient was outside the timing for tPA and with no acute occlusion or stenosis on CT angiography patient is admitted here for stroke workup as well as evaluation of his chest pain. Case was discussed with HEDY Elias who accepts. Stroke Core Measures Exclusion Criteria TPA in CVA: Symptom Onset >3 or 4.5 Hours Discharge Plan Departure Patient Disposition: Admitted As Inpatient Clinical Impression: Acute CVA (cerebrovascular accident), Chest pain Admit Date/Time: 08/09/21 04:45 Admit Provider: Marge Elias
[2021-08-09 03:53] LABS: COVID19 -Nasal RAPID Negative (Negative)
[2021-08-09] MEDS: MORPHINE 4 MG/ML INJ IV (04:35)
--- NOTE | 2021-08-09 05:02 | DI.MRI.S_ITS ---
PROCEDURE: MR HEAD/BRAIN WO CON INDICATIONS: chest pain, dysarthria TECHNIQUE: Noncontrast axial T1 spin echo, axial T2 fast spin echo, sagittal and axial FLAIR, coronal T2 fast spin echo, axial gradient echo, axial diffusion and ADC through the brain. COMPARISON: [facility], CT, CT ANGIO HEAD AND NECK, 08/09/2021, 3:05. [facility], CT, CT STROKE, 08/09/2021, 3:05. FINDINGS: Image quality: This examination is limited by involuntary motion artifact. CSF Spaces: Basal cisterns are patent. No extra-axial fluid collections. Ventricles are normal in size and shape. Brain: No intracranial masses or hemorrhage. Pierre/white matter interface is normal. Brainstem appears normal. Diffusion-weighted images demonstrate no acute ischemic insult. No chronic ischemic insults. Normal intravascular flow voids are present. Skull and face: Calvarium has normal marrow signal. Orbits appear normal. Sinuses: Sinuses and mastoids are clear. IMPRESSION: No findings of acute or subacute infarction can be seen. Dictated by: Burak Bradley M.D. on 08/09/2021 at 8:50 Approved by: Burak Bradley M.D. on 08/09/2021 at 8:52
--- NOTE | 2021-08-09 05:26 | P.HP_ITS ---
History of Present Illness History of Present Illness Date Patient Seen: 08/09/21 Time Patient Seen: 06:53 Chief complaint: SOB Narrative: Donny Forte is a 56-year-old male with a history of multiple C-spine and orthopedic injuries, and a remote history of seizures he states because he abruptly stopped and who currently takes no medications presented to the emergency room for a 2nd time today due to having shortness of breath and chest pressure. The patient was initially presented to me as his noting that he had slurred speech and was almost speaking and word salad however and my interview with the patient and his she stated that she felt that his speech was pressured because he was under stress from pain and stated he was almost mumbling. The patient had being seen twice by the same ED provider and she noted that he seemed to have some changes in his speech including slurring and hesitancy. He describes it as being tight and ?brutal he has had a little bit of nausea and he finds it hard to breathe. He states this started 1 day ago. He states he has chronic problems swallowing as a result of C-spine surgery has had a number of years ago in which he has difficulty swallowing pills and every once in a while will cough up a bolus of food after he has eaten. This has been a longstanding problem. He is a post secondary professional, travels quite a bit and is anticipating being gone for a extended period of time in the near future and frequently travels by air. He denies having headaches, visual changes, nasal congestion, dysuria, diarrhea or constipation. He denies any tingling or numbing or weakness of his upper lower extremities. Draft Head CT reading indicated and old lacunar infarct, however this is absent in the final read. Neither the head CT or the CTA indicated an acute process. Patient is afebrile, blood pressure 170/87, heart rate 71, respiratory rate 16, oxygen saturation of 100% on room air, he weighs 88 kg with a BMI of 25.6. CBC done during his 1st visit earlier in the day was unremarkable, glucose was 130, his first 2 troponins were negative, COVID-19 PCR is negative. Patient History Medical History History of seizures Surgical History History of cervical spinal surgery Family & Social History Family History Father Pancreatic cancer Mother Ovarian cancer Leukemia Diabetes mellitus Safety & Behavioral: Feels Safe in Current Yes Environment Been Physically Hurt or No Threatened By a Person Tobacco & Substance use: Smoking Status Never smoker alcohol intake frequency other Substance Use Type marijuana Meds Home Medications and Allergies Home Medications Medication Instructions Recorded Confirmed Type diphenhydramine 25 1 tab PO BEDTIME 08/08/21 08/08/21 History mg-acetaminophen 500 mg tablet (Tylenol PM Extra Strength) Allergies Allergy/AdvReac Type Severity Reaction Status Date / Time Penicillins Allergy Unknown Verified 08/08/21 16:02 Review of Systems Review of Systems ROS: Yes All systems reviewed with the patient and are negative except as otherwise documented Exam Vital Signs (past 8 hours): - 08/09/21 02:59 08/09/21 04:34 08/09/21 04:35 Pulse Rate 71 78 75 Respiratory Rate 16 18 15 Blood Pressure 172/93 H 171/84 H 158/82 H Pulse Oximetry 98 100 97 08/09/21 04:40 Pulse Rate 74 Respiratory Rate 17 Blood Pressure 157/88 H Pulse Oximetry 99 Oxygen Delivery Method Room Air Narrative Exam Narrative: Gen: Alert, oriented, well-developed pale 56 y.o. male, appears uncomfortable HEENT: normocephalic, atraumatic, conjunctiva clear, sclera non-icteric, oral mucosa pink and moist Neck: supple, full ROM, no JVD, trachea is midline Resp: Lungs CTA, non-labored breathing CV: RRR, no murmur or rubs Abd: soft, non-tender, normoactive BTs Skin: no lesions or rashes, dry and intact Neuro: Alert and oriented X 4 w/no focal deficits. CN 2-IX intact and bilateral. Speech clear, but soft. Extremities: moves all 4 extremities, is ambulatory, negative Arnoldo?s sign Psyche: normal mood and affect. Objective Labs Result Diagrams: 08/09/21 07:04 08/09/21 07:04 Labs: Laboratory Results - last 24 hr 08/09/21 03:28 SARS-CoV-2 (PCR) Negative Assessment & Plan Assessment & Plan narrative: Tee Forte is admitted to rule out a TIA vs CVA. 1. R/o TIA/CVA * Cardiac telemetry * NIH score greater than 5 [X]no, NIH scoring and neuro checks q 4 hours * Dual antiplatelet therapy: No[] Yes[]initiate dual antiplatelet therapy with clopidogrel 75 mg p.o. daily and aspirin 81 mg p.o. daily * MR stroke scheduled for 08/10 * Complete Echo with bubble study for 08/10 * PT/OT/ST evaluation 2. Chest pain, acute and present on admission * Patient has been receiving morphine for continued chest pain and is not relieved. * Ordered new EKG, no ST elevations or depressions seen * Troponin and repeat D-dimer ordered, if D-Dimer is elevated, will need to have a chest CTA PE protocol done * Patient's profession requires frequent air travel, last flown on Sunday 3. Hypertensive urgency, acute with an admission bp of 172/93, present on admission * Allow for permissive hypertension for brain profusion of a systolic of 220 and a diastolic of 105. * IV labetolol if his systolic exceeds 220 or diastolic greater than 105. 4. HLD * Fasting lipid panel, pending * Atorvastatin 80 mg po at bedtime Risk stratification Fasting lipid panel pending for the morning A1c is % is pending VTE Prophylaxis: Wells risk score 0[X]Enoxaparin 40 mg subQ once daily X Bilateral SCDs Patient is admitted to the inpatient service due to the severity of disease, risks of further disease progression and this stay is expected to exceed 2 midnights. FEN: IV fluids: saline lock, diet: NPO until stress test, labs: CBC, C/BMP, liver enzymes, Mag, PT/INR Consultants None Dispo: Patient is experiencing an acute episode of chest pain, worsening, may warrant urgent transfer for cardiac cath Code status: Full code as discussed with the patient who identifies his , Naz as his surrogate and POA. [X] I have utilized all available immediate resources to obtain, update, or review of the patient's current medications COVID-19 COVID-19 status: Negative Result date/Date tested (Pos, Neg/Pending): 08/09/21 Time Spent With Patient Critical Care time: I spent a total of [] minutes of critical care time on this patient's care today; this time is exclusive of procedural time. Scores Wells' Criteria for PE Clinical signs and symptoms of DVT: No PE is #1 Dx or equally likely: No Heart rate > 100: No Immobilization at least 3 days or surg in previous 4 weeks: No History of PE or DVT: No Hemoptysis: No Malignancy w/Treatment within 6 months or palliative: No Wells' PE Score total: 0 Quality VTE Deep Vein Thrombosis/Pulmonary Embolism Present on Admission: No MIPS - Admit I confirm the patient?s Advance Care Plan is present, Code status is documented, Surrogate decision maker is in patient?s record [If Yes, STOP here]: Yes MIPS - DC The patient has current or prior documentation of left ventricular ejection fraction (LVEF) less than 40%, or moderate or severely depressed left ventricular systolic function.: No
--- NOTE | 2021-08-09 05:27 | DI.ECHO.S_ITS ---
[place] +---------+ [facility] +---------+ : : [address] : : : : [id number] : : : : Phone: [phone]+ Echocardiogram Report + + :Name: STEPH HOLLINGSWORTH Study Date: 08/09/2021 Height: 73 in : :[facility] ReadingLocation: Weight: 195 lb : : Gender: Male BSA: 2.1 m2 : :: 1965 Age: 56 yrs BP: 158/82 mmHg: :Reason For Study: DYSARTHRIA, TIA : :Ordering Physician: Monico PUTNAMformed By: Rocío Aaron : :Referring: HILARY PUTNAM : + + Interpretation Summary The left ventricle is normal in size. Left ventricular systolic function appears normal without focal wall motion abnormalities. The ejection fraction is estimated to be 60-65%. Diastolic parameters suggest probable normal left ventricular diastolic function and normal filling pressures. The right ventricle is normal in size and function. The left atrium is mildly dilated. Right atrial size is normal. There is no Doppler evidence for an interatrial shunt. Injection of contrast documented no interatrial shunt. There is no significant valvular heart disease. The aortic root is mildly dilated. The ascending aorta is mild-moderately enlarged. Procedure: A two-dimensional transthoracic echocardiogram with color flow and Doppler was performed. A saline contrast injection was performed to assess for cardiac shunting. The study quality was technically adequate. There is no prior echocardiogram noted for this patient. The patient was in sinus bradycardia with heart rates between 60-67 bpm during the exam. Left Ventricle: The left ventricle is normal in size. There is mild concentric left ventricular hypertrophy. Left ventricular systolic function appears normal without focal wall motion abnormalities. The ejection fraction is estimated to be 60-65%. Diastolic parameters suggest probable normal left ventricular diastolic function and normal filling pressures. Right Ventricle: The right ventricle is normal in size and function. Atria: The left atrium is mildly dilated. Right atrial size is normal. There is no Doppler evidence for an interatrial shunt. Injection of contrast documented no interatrial shunt. Mitral Valve: The mitral valve is normal in structure and function. There is trace mitral regurgitation. Aortic Valve: The aortic valve is trileaflet. The aortic valve opens well. There is no aortic valve stenosis. No aortic regurgitation is present. Tricuspid Valve: The tricuspid valve is normal in structure and function. There is trace tricuspid regurgitation. Pulmonic Valve: The pulmonic valve leaflets are thin and pliable; valve motion is normal. There is no pulmonic valvular regurgitation. There is no significant valvular heart disease. Great Vessels: The aortic root is mildly dilated. The ascending aorta is mild-moderately enlarged. The inferior vena cava was not well visualized. Pericardium/ Pleura There is no pericardial effusion. There is no pleural effusion. MMode/2D Measurements & Calculations LVIDd: 4.3 cm LVOT diam: 2.3 cm LVIDs: 3.3 cm Ao root diam: 4.2 cm FS: 24.7 % asc Aorta Diam: 4.2 cm IVSd: 1.3 cm Ao Arch Diam (Prox Trans): 2.8 cm LVPWd: 1.2 cm LV pelletier. diameter/BSA (cm/m^2): 2.0 LV sys. diameter/BSA (cm/m^2): 1.5 LA A2 area: 24.2 cm2 RA long axis: 6.0 cm LA A4 area: 22.2 cm2 RA area: 18.5 cm2 LA length (vol): 5.6 cm RA vol: 49.1 ml LA vol: 81.9 ml RA : 23.1 ml/m2 LA vol index: 38.5 ml/m2 RVD1 (basal): 3.1 cm TAPSE: 1.8 cm Doppler Measurements & Calculations Ao V2 max: 111.4 cm/sec LVOT Max Jimbo: 105.6 cm/sec Ao V2 mean: 84.0 cm/sec LV V1 max P.5 mmHg Ao max P.0 mmHg LV V1 VTI: 24.3 cm Ao mean P.1 mmHg MADDY(I,D): 4.2 cm2 Ao V2 VTI: 23.7 cm MADDY(V,D): 3.9 cm2 sev ratio: 1.0 MADDY indexed to BSA (cm^2/m^2): 2.0 MV E max jimbo: 62.1 cm/sec PA V2 max: 72.0 cm/sec MV A max jimbo: 63.9 cm/sec PA V2 mean: 51.7 cm/sec MV E/A: 0.97 PA mean P.2 mmHg Med Peak E' Jimbo: 7.2 cm/sec PA pr(Accel): 10.5 mmHg E/E' med: 8.7 Lat Peak E' Jimbo: 6.6 cm/sec E/E' lat: 9.4 E/e' average: 9.0 MV dec time: 0.27 sec SV(LVOT): 100.4 ml Reading Physician:02:00 PM
[2021-08-09 06:00] LABS: COVID19 - ADMIT (NP swab/PCR) Negative (Negative)
[2021-08-09] MEDS: MORPHINE 2 MG/ML INJ IV (07:13)
[2021-08-09] MEDS: ONDANSETRON 4 MG/2 ML INJ IV (07:13)
[2021-08-09 07:28] LABS: Add Manual Diff / Slide Review NO; Basophils Absolute Auto 100 /uL (0-100); Basophils Percent Auto 0.9 % (0-2); Eosinophils Absolute Auto 0 /uL (0-450); Eosinophils Percent Auto 0.2 % (2-4); Hematocrit 44.1 % (41-53); Hemoglobin 15.6 g/dL (13.5-17.5); Lymphocytes Absolute Auto 1500 /uL (1100-4500); Lymphocytes Percent Auto 24.3 % (25-40); Mean Corpuscular HGB Conc 35.2 % (30-36); Mean Corpuscular Hemoglobin 31.3 PG (26-34); Mean Corpuscular Volume 88.7 fL (80-100); Monocytes Absolute Auto 400 /uL (0-900); Monocytes Percent Auto 5.9 % (3-14); Neutrophils Absolute Auto 4100 /uL (1500-7000); Neutrophils Percent Auto 68.7 % (50-75); Platelet Count 171 X10^3/uL (150-400); Red Blood Cell Count 4.98 X10^6/uL (4.5-5.9); Red Cell Distribution Width 12.7 % (11.6-14.8)
[2021-08-09 07:36] LABS: INR 1.2 (0.9-1.3); Prothrombin Time 13.3 SECONDS (10.1-12.7)
[2021-08-09] MEDS: ACETAMINOPHEN 325 MG TABLET 650 MG PO ×2 (07:43→12:03)
[2021-08-09 07:44] LABS: BUN Creatinine Ratio 10.8 (6-22); Blood Urea Nitrogen 8 mg/dL (9-20); Carbon Dioxide 25 mmol/L (22-32); Chloride 105 mmol/L (98-107); Estimated Glomerular Filt Rate > 60.0 mL/min (>60); Glucose 153 mg/dL (70-100); HEMOLYSIS < 15 (0-50); Magnesium 1.8 mg/dL (1.6-2.3); Potassium 3.8 mmol/L (3.4-5.1); Sodium 141 mmol/L (137-145)
[2021-08-09 07:48] LABS: D Dimer < 200 ng/mL (<230)
[2021-08-09 07:52] LABS: Cholesterol 164 mg/dL (140-199); HDL Cholesterol 36 mg/dL (40-60); LDL Cholesterol Calculated 82 mg/dL (<100); Triglycerides 230 mg/dL (35-150)
[2021-08-09 07:55] LABS: Hemoglobin A1C% w Est Avg Glu 6.3 % (4.0-6.0)
[2021-08-09 07:56] LABS: Troponin I < 0.012 ng/mL (0.01-0.034)
[2021-08-09] MEDS: ENOXAPARIN 40 MG/0.4 ML SYRINGE SUBCUT (08:15)
[2021-08-09] MEDS: ASPIRIN EC 81 MG TABLET PO (08:15)
[2021-08-09] MEDS: CLOPIDOGREL 75 MG TABLET PO (08:15)
--- NOTE | 2021-08-09 08:45 | PC.NURSE ---
Day shift - Pt off unit at 0815 for MRI
--- NOTE | 2021-08-09 09:34 | CM.DANOTE ---
DCP: Case received, EMR reviewed and met with patient. Introduced self and role. Was able to obtain information regarding patient's baseline activity status prior to hospitalization. DCP assessment completed with information currently available. Patient is a 56 year old male who admitted early this morning to the care of the hospitalist team. PCP: Was Chandrika, but currently, no provider. Payer: [employer]. Patient came to the hospital via private vehicle secondary to having chest pain. Spouse was concerned about some word finding and slurred speech. Patient was also noted to have HTN. Patient is having MRI to rule out CVA, and cardiac work up. Met with patient in his room. He had on mask, was able to speak. Confirmed that he is independent at his baseline. He resides with spouse, Naz, here in [place]. He is employed at [employer]. Speech Therapy had just seen patient and cleared him. She indicated, he is under a lot of stress at his job. Asked patient about primary provider, stated, he really doesn't have one now, him and his moved here from [place] recently. P: DCP to continue to follow for any needs. Can give resources for providers. MRI is pending. Gladis Case RN/Inspection Clerk Discharge Planning/Care Management Advanced directive, confirm from FAMILY Start: 08/09/21 06:52 Freq: Q24H Status: Active Protocol: Document 08/09/21 08:03 BT (Rec: 08/09/21 08:04 BT [id number]) Advance Directive, confirm on record Time 08:03 Person contacted Donny Forte Copy received No Advanced directive available on record No CM Discharge Assessment Start: 08/09/21 09:33 Freq: Status: Active Protocol: Document 08/09/21 09:33 VM (Rec: 08/09/21 09:34 VM [id number]) Discharge Planning Assessment Assigned Buyer Gladis Case RN/Inspection Clerk Advance Directives? No Advance Directives on File No History Provided By Patient,Family Member,Medical Record Prior Living Arrangements House Household Members spouse Type of transporation used prior to Drives own vehicle admit Independent with ADL's Yes Is patient alert and oriented? Yes Barriers to Discharge No Discharge Plan Home Transportation Arrangement Spouse Referrals Initiated None needed Whiteboard Updated in Patient Room with Yes name and ext. # of Buyer Review Status In Process Next Review Type Continued Stay Review
--- NOTE | 2021-08-09 11:12 | ST.IPCSEOM ---
Visit Care Team Role Provider Type DOTTY Tello Primary Care Provider Non-Staff Specialty: Medical Address: [address] [place] [address], [place], [address] Email: Cong Mckee MD Family Provider Non-Staff Specialty: Urology Address: Phone: Fax: Email: Chelsy Matamoros DO Emergency Provider Physician Specialty: Emergency Medicine Address: [address] [place] [address], [address] Email: [email or web address] Admit Provider Physician Attending Provider Specialty: Internal Medicine Address: [address] [place] [address], [id number] Email: [email or web address] Medical History (Last Reviewed 08/09/21 @ 07:05 by DOTTY Angulo) History of cervical spinal surgery (Medical) History of seizures (Medical) Speech-Language Pathology Swallow Evaluation DIRECTOR OF ONLINE MERCHANDISING Clinical Swallow Evaluation Start: 08/09/21 09:17 Freq: Status: Active Protocol: Document 08/09/21 09:19 CLARISA (Rec: 08/09/21 09:33 CLARISA [id number]) Clinical Swallow Evaluation Session Time Visit Start Time 08:45 Visit Stop Time 09:15 Total Visit Minutes 30 Referral Referring Provider DOTTY Angulo Setting Assessment Location Acute Care Visit Type Note Type Initial evaluation Patient Information Identification Type Name,Wristband History The patient presented to to the ED with his noting that he had slurred speech and was almost speaking and word salad. Additionally, his thought his speech was unusual due to stress from chest pain . She described changes in his speech including slurring and hesitancy. The patient reported chronic problems swallowing as a result of ACDF surgery (anterior and posterior approaches) a number of years ago. Pt has difficulty swallowing pills and every once in a while will cough up a bolus of food after he has eaten. This has been a longstanding problem. Subjective Observations Pt was in bed and agreed to assessment. Pt related history of last 24 hours without s/sx aphasia/dysarthria/memory deficits. Reported by Patient Comment Pt has hx of ACDF surgery ~15 years ago. Pt states he is aware of foods that may be difficult to chew/swallow. He stated that he is able to manage this without need for intervention. offered literature on ACDF and swallow /voice which pt declined Current Diet Nothing by mouth Baseline Feeding Method Independent in self-feeding Objective Assessment Mental Status Responsive,Cooperative Oral Integrity WFL Dentition Within normal limits Lip Function Within normal limits Observation of Lips at Rest Symmetrical Pucker Within normal limits Lip Retraction Within normal limits Alternating Pucker/Lip Retraction Within normal limits Tongue Protrusion Within normal limits Tongue Retraction Within normal limits Tongue Lateralization Within normal limits Observations of Jaw at Rest Within normal limits Hard/Soft Palate Function Within normal limits Observations of Hard/Soft Palate Within normal limits Phonation Within normal limits Comment Pt had just received morphine and was tired, but able to participate in full examination. Food and Liquid Trials Position During Assessment Slightly reclined Liquids Trialed Ice chips,Thin Solids Trialed Regular Administration Type Cup consecutive sips,Straw, Self-feeding Oral Impairment Within normal limits Oral Phase Comments Good rotary chew for mastication. OME indicted structures WL for ROM and strength. DKS was observed to be WNL Pharyngeal Impairment Within normal limits Pharyngeal Phase Comments Hyolaryngeal elevation good per palpation. No wet voice/ cough/choke observed. Consecutive sips with straw safely swallowed. Fatigue/Endurance Mild fatigue Findings Swallowing Function Within normal limits Severity of Swallow Impairment Within normal limits Prognosis Good Based on Cognitive status,Age,Duration of symptoms/severity Comment MRI report indicated no acute intracranial processes Impact on Safety and Functioning No limitations Comments Pt well aware of safe swallow strategies hre has been using since ACDF surg Recommendations Instrumental Assessment No Frequency No ST indicated at this time Recommended Solids Regular Recommended Liquids Thin Safety Precautions/Swallowing Remain upright (90 degrees) Recommendations during all oral intake,Upright position at least 30 minutes after meals,Small bites and sips when eating Medication Recommendations As Tolerated Discharge Recommendations Home Referrals Recommended Referrals Primary Care Provider Education Patient/Caregiver Education Described results of evaluation,Patient expressed understanding of evaluation, Patient expressed agreement with goals & treatment plans, Patient expressed understanding of safety precautions
[2021-08-09] MEDS: ATORVASTATIN 20 MG TABLET 80 MG PO (20:19)
--- NOTE | 2021-08-09 23:29 | PM.CALLCOV.1 ---
Call Coverage Note Note Date of Patient Contact: 08/09/21 Time of Patient Contact: 22:30 Narrative of Care Provided: Patient is sound asleep and I did not wish to wake him up. Throughout the day, he became very fatigued, but no longer reporting severe chest pain. Have ordered a pharmacological stress test for tomorrow. Echo and MRI of the head were negative. Continue to monitor.
[2021-08-10] VITALS (8 sets, daily range): BP systolic 110–132; BP diastolic 60–78; PULSE 58–78; RESP 17–20; TEMP 36.3–37.2; O2SAT 96–99
--- NOTE | 2021-08-10 | DI.NM.S_ITS ---
PROCEDURE: NM PANCHO PERF SPECT R&S PHARM Rest and pharmacological stress myocardial perfusion SPECT with gated imaging and ejection fraction RADIOPHARMACEUTICAL: 11.8 mCi Tc-99m tetrafosmin IV at rest and 26.4 mCi Tc-99m tetrafosmin IV at peak effect of pharmacological stress. [id number] was performed. INDICATIONS: Chest pain TECHNIQUE: Radiopharmaceutical was injected at peak stress test, and also at rest. SPECT images were obtained. SPECT myocardial perfusion images were displayed in short axis, horizontal long axis, and vertical long axis views. Gated images were reviewed using [employer] software. COMPARISON: None. CARDIAC STRESS: A pharmacologic stress test was performed under the supervision of an attending staff, using an infusion of lexiscan 0.4mg IV X1. Hemodynamic data: There is normal blood pressure and heart rate response to pharmacologic stress. Symptoms: The patient denied anginal chest pain. Aminophylline: none EKG: No diagnostic changes of ischemia; no ectopy. FINDINGS: Raw data: There is good myocardial uptake of radiotracer. No significant motion artifacts. Fnzi-si-ylzqm ratio is 0.36 (normal is less than 0.38 for tetrafosmin tracer). Left ventricle function: Gated images demonstrate normal left ventricular wall thickening. No segmental wall motion abnormalities. No transient ischemic dilation; TID is 0.77 (normal less than 1.3). Left ventricle resting end diastolic volume is 82 mL. Left ventricle stress ejection fraction is 82%; normal range is above 45%. Myocardial perfusion: There is normal distribution of activity in the right and left ventricular myocardium. No fixed or reversible perfusion defects. IMPRESSION: Low risk, normal pharmaceutical nuclear stress test 1) No perfusion evidence of ischemia or infarction. 2) No ECG evidence of ischemia. 3) No angina during the study. 4) No prior nuclear stress test available for comparison. Dictated by: Prem Swift MD on 08/10/2021 at 16:43 Approved by: Prem Swift MD on 08/10/2021 at 16:44
[2021-08-10] MEDS: ACETAMINOPHEN 325 MG TABLET 650 MG PO ×2 (06:13→15:00)
[2021-08-10] MEDS: ENOXAPARIN 40 MG/0.4 ML SYRINGE SUBCUT (08:50)
[2021-08-10] MEDS: CLOPIDOGREL 75 MG TABLET PO (08:51)
[2021-08-10] MEDS: ASPIRIN EC 81 MG TABLET PO (08:51)
[2021-08-10] MEDS: NITROGLYCERIN 0.4 MG SL TAB SL (11:05)
[2021-08-10 11:32] LABS: Hematocrit 46.8 % (41-53); Hemoglobin 16.6 g/dL (13.5-17.5); Mean Corpuscular HGB Conc 35.5 % (30-36); Mean Corpuscular Hemoglobin 31.5 PG (26-34); Mean Corpuscular Volume 88.7 fL (80-100); Platelet Count 189 X10^3/uL (150-400); Red Blood Cell Count 5.28 X10^6/uL (4.5-5.9); Red Cell Distribution Width 12.7 % (11.6-14.8); White Blood Cell Count 8.1 X10^3/uL (4.5-11.0)
[2021-08-10 11:48] LABS: D Dimer < 200 ng/mL (<230)
[2021-08-10 12:01] LABS: Creatine Kinase 29 U/L (55-170)
[2021-08-10 12:14] LABS: Troponin I < 0.012 ng/mL (0.01-0.034)
--- NOTE | 2021-08-10 12:52 | PC.NURSE ---
Addendum entered by Donna Stover R.N. 08/10/21 16:54: Pt escorted by staff via W/C to waiting vehicle D/C in stable condition. Addendum entered by Donna Stover R.N. 08/10/21 16:43: MD in to see pt. Denies discomfort at this time. Orders for discharge received. SL and tele discontinued. D/C instructions given w/understanding Original Note: Pt had episode of 10/10 cheat pain @ 1045 MD to see. Nitro one tab SL given w/good relief. Labs drawn as per orders. Pt resting at this time. Down for stress test
--- NOTE | 2021-08-10 13:16 | PM.TREADMILL ---
Cardiac Stress Test Report Referral & Results Indication: chest pain Rest ECG: sinus rhythm Procedure Note: lexiscan stress test Impression: before lexiscan injection, patient had 1/10 chest tightness which he attributed to anxiety. After lexiscan patient had minimal dyspnea, no chest discomfort, chest tightness resolved. Baseline ECG sinus rhythm, no ST changes on ECG after Lexiscan injection. No ectopy noted. After inj, patient had stomach cramps which resolved with caffeine intake. DOTTY [place] Please note: Actual ECG tracings can be found in the PACS system.
--- NOTE | 2021-08-12 17:57 | PM.DS.1 ---
History of Present Illness History of Present Illness Date Patient Seen: 08/10/21 Chief complaint: SOB Narrative: Donny Forte is a 56-year-old male with a history of multiple C-spine and orthopedic injuries, and a remote history of seizures he states because he abruptly stopped and who currently takes no medications presented to the emergency room for a 2nd time today due to having shortness of breath and chest pressure.? The patient was initially presented to me as his noting that he had slurred speech and was almost speaking and word salad however and my interview with the patient and his she stated that she felt that his speech was pressured because he was under stress from pain and stated he was almost mumbling.? The patient had being seen twice by the same ED provider and she noted that he seemed to have some changes in his speech including slurring and hesitancy.? He describes it as being tight and ?brutal he has had a little bit of nausea and he finds it hard to breathe.? He states this started 1 day ago.? He states he has chronic problems swallowing as a result of C-spine surgery has had a number of years ago in which he has difficulty swallowing pills and every once in a while will cough up a bolus of food after he has eaten.? This has been a longstanding problem. He is a paraprofessional aide teacher, travels quite a bit and is anticipating being gone for a extended period of time in the near future and frequently travels by air.? He denies having headaches, visual changes, nasal congestion, dysuria, diarrhea or constipation.? He denies any tingling or numbing or weakness of his upper lower extremities. [place] Head CT reading indicated and old lacunar infarct, however this is absent in the final read.? Neither the head CT or the CTA indicated an acute process.? Patient is afebrile, blood pressure 170/87, heart rate 71, respiratory rate 16, oxygen saturation of 100% on room air, he weighs 88 kg with a BMI of 25.6.? CBC done during his 1st visit earlier in the day was unremarkable, glucose was 130, his first 2 troponins were negative, COVID-19 PCR is negative. Discharge Providers Provider Date of admission: 08/09/21 04:45 Discharge Date: 08/10/21 Primary care physician: DOTTY Tello Consults: 08/09/21 05:09 Consult to Speech Therapy Evaluate & Treat Comment: Physician Instructions: Evaluate and treat Discharge provider: Kasia Barbosa MD Summary Hospital Course Discharge Diagnosis: 1. Chest pain etiology unclear S test negative 2. History of seizures 3. Speech abnormalities, head MRI negative Hospital Course: Patient is a 56-year-old male who was admitted to the hospital for shortness of breath and chest pressure. The was concerned about slurring of his speech. The patient had an EKG cardiac enzymes which were negative for acute ischemic changes. He Underwent a head and neck CTA which was negative. Brain MRI was negative for stroke. Patient had a myocardial perfusion scan which showed no evidence of reversible ischemia. Echocardiogram revealed left ventricular systolic function was normal without focal wall motion abnormalities. Ejection fraction was 60 65%. Right ventricle was normal in size. The left atrium was mildly dilated, right atrial size was normal, no significant valvular heart disease. Patient had no further chest pain. Etiology of his shortness of breath and chest pain were unclear however extensive workup revealed no ischemic changes no evidence of stroke patient was deemed appropriate for discharge and discharged home. Status at Discharge Cognitive/behavioral status at discharge: oriented Functional status at discharge: independent ambulation Overall status at discharge: patient is progressing back to baseline Exam Vital Signs (past 8 hours): Oxygen Delivery Method Room Air Oxygen Flow Rate 0 Narrative Exam Narrative: Pleasant male in no acute distress Resp Other: Lungs clear to auscultation Cardio Other: Cardiac exam: Regular rate and rhythm normal S1-S2 GI Other: Abdomen: Soft nontender nondistended Extrem Other: Extremity no edema Objective Labs Result Diagrams: 08/10/21 11:15 08/09/21 07:04 [facility] Medical History History of seizures Surgical History History of cervical spinal surgery Family History Father Pancreatic cancer Mother Ovarian cancer Leukemia Diabetes mellitus Social History household members: spouse Smoking Status: Never smoker Discharge Assessment & Plan Assessment and Plan Assessment: Chest pain etiology unclear S test negative 2. History of seizures 3. Speech abnormalities, head MRI negative Plan of Treatment: Discharge home. Follow-up with PCP next week Discharge Plan Discharge Plan Patient Disposition: Home Discharge orders & Medications Prescriptions: Continued diphenhydramine-acetaminophen [Tylenol PM Extra Strength] 25-500 mg Tablet 1 tab PO BEDTIME 0RF Follow up/Referrals: Tiffanie Shepherd ARNP [Primary Care Provider] - Discharge Health Status Multidrug resistant organism: No MDRO Diet/Activity/Treatments Diet: Diet as Tolerated Discharge Data Primary Care Provider: Tiffanie Shepherd Attending Provider: Marge Elias VTE Deep Vein Thrombosis/Pulmonary Embolism Present on Admission: No
== END 2021-08-10 16:53 | disposition home or self-care (01) ==
LOC: ED 02:51 → AC 04:46
PROVIDERS: Internal Medicine; Admitting Provider Nurse Practitioner Family; Emergency Provider Emergency Medicine; PCP Nurse Practitioner Family; Visit Provider Nurse Practitioner Family
DX: R47.81 Slurred speech (principal); R07.9 Chest pain, unspecified; R06.02 Shortness of breath; I16.0 Hypertensive urgency; E78.5 Hyperlipidemia, unspecified; R73.03 Prediabetes; Z20.822 Contact with and (suspected) exposure to COVID-19
CPT/HCPCS: 36415; 70450; 70496; 70498; 70551; 78452; 80048; 80061; 82550; 82962; 83036; 83735; 84484; 85025; 85027; 85379; 85610; 87635; 92610; 93005; 93010; 93017; 93306; 94762; 96372; 96374; 96375; 96376; 99284; 99285; C9803; G0378; A9502; J1650; J2270; J2405; J2785; Q9967

== ENCOUNTER → 2022-05-04 12:45 | Outpatient (CLI) | payer OTHER, SELFPAY ==
[2021-08-09 06:07] VITALS: BMI 25.6
--- NOTE | 2022-05-04 | DI.MRI.S_ITS ---
PROCEDURE: MR KNEE LT WO CON INDICATIONS: Dorsalgia, unspecified Pain in left knee TECHNIQUE: Noncontrast sagittal PD fast spin echo and T2 fast spin echo with fat saturation, sagittal 3-D FLASH with fat saturation; coronal T1 spin echo and PD fast spin echo with fat saturation, and axial PD fast spin echo with fat saturation through the knee. COMPARISON: None. FINDINGS: Image quality: Excellent. Menisci: Amorphous and linear high signal intensity traverses the inner and middle thirds of the medial meniscal body and posterior horn demonstrating inferior articular surface extension, indicating complex tearing. There is linear horizontal and oblique high signal intensity traversing the inner, middle, and peripheral thirds of the lateral meniscal body and anterior horn, demonstrating inferior articular surface extension, indicating complex tearing. Cruciate ligaments: The anterior and posterior cruciate ligaments appear intact. Medial structures: The medial collateral ligament appears intact, but demonstrates mild surrounding T2 signal elevation. Visualized portions of the pes anserinus tendons appear normal. No abnormal bursal fluid. Lateral structures: The lateral collateral ligament, long and short heads of the biceps femoris tendon appear intact. The popliteus tendon appears normal. Iliotibial band appears normal. Anterior structures: The quadriceps tendon is intact. Small focus of fluid signal intensity within the patellar tendon at the patellar insertion site is present.. Lateral patellar subluxation is present. There is lateral ventral trochlear prominence. Severe edema within the superolateral aspect of the infrapatellar fat pad. Bones and cartilage: No bone marrow contusions or fractures. Moderate, presumably degenerative marrow edema within the central and lateral tibial plateau. Fragmentation of the anterior tibial tubercle is present. There is moderate articular cartilage loss diffusely overlying the weight-bearing aspects of the medial femoral condyle and medial tibial plateau with a superimposed 10 mm region of full-thickness articular cartilage loss overlying the mid portion of the medial femoral condyle. There is mild articular cartilage loss diffusely overlying the weight-bearing aspects of the lateral femoral condyle and lateral tibial plateau. Severe articular cartilage loss overlies the lateral patellar facet inferiorly. Joint space: There is a small knee joint effusion and a small Harrington's cyst. Normal appearing synovial plicae are incidentally noted. IMPRESSION: 1. Medial and lateral meniscal tearing. 2. Findings consistent with lateral patellofemoral friction syndrome in the appropriate clinical setting. 3. Low-grade partial-thickness tearing of the patellar tendon at the patellar insertion site. 4. MCL strain. 5. Knee joint effusion and Harrington's cyst. 6. Findings suggestive of remote [place]-Schlatter disease. Dictated by: Carlos Eduardo Johnston M.D. on 05/04/2022 at 14:55 Transcribed by: FLACO on 05/04/2022 at 14:59 Approved by: Carlos Eduardo Johnston M.D. on 05/04/2022 at 16:57
--- NOTE | 2022-05-04 | DI.MRI.S_ITS ---
PROCEDURE: MR THORACIC SPINE WO CON INDICATIONS: THORACIC PAIN TECHNIQUE: Noncontrast sagittal T1 spine echo and T2 fast spin echo, sagittal STIR, and T2 fast spin echo through the thoracic spine. COMPARISON: [facility], CT, CT ANGIO HEAD AND NECK, 08/09/2021, 3:05. FINDINGS: Image quality: Excellent. Alignment and Curvature: There is normal bony alignment. Bone Marrow: Marrow is of normal overall signal. No acute vertebral body compression fractures. Spinal Cord: Visualized spinal cord is normal in size and signal. Paraspinous Soft Tissues: No paravertebral masses. Miscellaneous: On axial images, central canal and foramina appear widely patent at all scanned levels. There is a small centrally located disc protrusion present at T7-T8 and a small to moderate-sized left paracentral disc protrusion present T9-T10. IMPRESSION: 1. Small centrally located disc protrusion present T7-T8. 2. Small to moderate-sized left paracentral disc protrusion present T9-T10. Dictated by: Tee Garcia M.D. on 05/04/2022 at 14:00 Approved by: Tee Garcia M.D. on 05/04/2022 at 14:11
== END ==
PROVIDERS: PCP Preventive Medicine Public Health & General Preventive Medicine
DX: S83.282A Other tear of lateral meniscus, current injury, left knee, initial encounter (principal); M51.24 Other intervertebral disc displacement, thoracic region; S76.112A Strain of left quadriceps muscle, fascia and tendon, initial encounter; S83.242A Other tear of medial meniscus, current injury, left knee, initial encounter; S83.412A Sprain of medial collateral ligament of left knee, initial encounter; M71.22 Synovial cyst of popliteal space [Baker], left knee; M25.462 Effusion, left knee; M25.562 Pain in left knee; Y99.0 Civilian activity done for income or pay
CPT/HCPCS: 72146; 73721

== ENCOUNTER 2022-09-16 16:30 | Emergency (ER) | payer BC, SELFPAY ==
[2021-08-09 06:07] VITALS: BMI 25.6
[2022-09-16] VITALS (10 sets, daily range): BP systolic 168–198; BP diastolic 82–103; PULSE 77–95; RESP 16–22; TEMP 37.3; O2SAT 96–99; BMI 27.9
--- NOTE | 2022-09-16 16:35 | DI.RAD.S_ITS ---
PROCEDURE: XR HAND LT MIN 3V INDICATIONS: amputation, trauma TECHNIQUE: 3 views of the hand(s) acquired. COMPARISON: None. FINDINGS: Soft tissue maceration and severely comminuted fracture noted at the mid 2nd proximal phalanx as well as at the interphalangeal joint of the thumb. No radiopaque foreign body. Third 4th and 5th digits unremarkable IMPRESSION: Severe soft tissue maceration and comminuted fracture 1st and 2nd digits Approved by: Scott Dooley M.D. on 09/16/2022 at 16:21
[2022-09-16] MEDS: CEFAZOLIN VIAL 1 GM in SODIUM CHLORIDE 0.9% 100 ML IV (16:54)
[2022-09-16] MEDS: HYDROMORPHONE 0.5 MG INJ IV ×2 (16:54→18:01)
[2022-09-16 16:58] LABS: Add Manual Diff / Slide Review NO; Basophils Absolute Auto 0 /uL (0-100); Basophils Percent Auto 0.7 % (0-2); Eosinophils Absolute Auto 100 /uL (0-450); Eosinophils Percent Auto 1.1 % (2-4); Hematocrit 45.9 % (41-53); Hemoglobin 16.5 g/dL (13.5-17.5); Lymphocytes Absolute Auto 2200 /uL (1100-4500); Lymphocytes Percent Auto 30.6 % (25-40); Mean Corpuscular Hemoglobin 31.2 PG (26-34); Mean Corpuscular Volume 86.6 fL (80-100); Monocytes Absolute Auto 600 /uL (0-900); Neutrophils Absolute Auto 4400 /uL (1500-7000); Neutrophils Percent Auto 59.6 % (50-75); Platelet Count 193 X10^3/uL (150-400); Red Cell Distribution Width 12.7 % (11.6-14.8); White Blood Cell Count 7.3 X10^3/uL (4.5-11.0)
[2022-09-16 17:07] LABS: Alanine Aminotransferase 24 IU/L (<50); Albumin 4.8 g/dL (3.5-5.0); Albumin Globulin Ratio 1.4 (1.0-2.8); Alkaline Phosphatase 70 U/L (38-126); Aspartate Aminotransferase 27 IU/L (17-59); Bilirubin Total 1.1 mg/dL (0.2-1.3); Blood Urea Nitrogen 16 mg/dL (9-20); Calcium 9.5 mg/dL (8.4-10.2); Carbon Dioxide 24 mmol/L (22-32); Chloride 101 mmol/L (98-107); Estimated Glomerular Filt Rate > 60 mL/min (>60); Globulin 3.4 g/dL (1.7-4.1); Glucose 215 mg/dL (70-100); HEMOLYSIS 40 (0-50); Potassium 3.7 mmol/L (3.4-5.1); Sodium 138 mmol/L (137-145); Total Protein 8.2 g/dL (6.3-8.2)
--- NOTE | 2022-09-16 17:11 | ED_ITS ---
HPI - Extremity Injury (Upper) General Chief Complaint: Trauma Stated Complaint: Table saw inj Time Seen by Provider: 09/16/22 16:35 Source: patient and family Mode of arrival: Family Vehicle History of Present Illness HPI narrative: Patient here with . As injury to the left thumb and index finger. Patient was using a table saw. Tetanus is up-to-date. He has near amputation of the distal phalanx of the thumb and at the mid proximal phalanx of the index finger. Bleeding is controlled. Related Data Home Medications Medication Instructions Recorded Confirmed diphenhydramine 25 1 tab PO BEDTIME 08/08/21 09/16/22 mg-acetaminophen 500 mg tablet (Tylenol PM Extra Strength) Allergies Allergy/AdvReac Type Severity Reaction Status Date / Time Penicillins Allergy Unknown Verified 09/16/22 16:55 Review of Systems Review of Systems Narrative: GENERAL: negative chills, fatigue, malaise, fever, sweats. HEENT: negative sinus pain, ear pain, sore throat RESPIRATORY: negative dyspnea, cough CARDIOVASCULAR: negative chest pain, palpitations GASTROINTESTINAL: negative nausea, vomiting, abdominal pain : negative dysuria, frequency, hematuria MUSCULOSKELETAL: Positive muscle or bony pain SKIN: negative rash, skin lesions NEUROLOGIC: negative weakness, numbness ROS Unobtainable: All systems reviewed & are unremarkable except as noted in HPI and below Patient History Medical History History of seizures Surgical History History of cervical spinal surgery Family History Father Pancreatic cancer Mother Ovarian cancer Leukemia Diabetes mellitus Social History household members: spouse Smoking Status: Never smoker Smoking Status: Never smoker alcohol intake frequency: other Substance Use Type: marijuana Exam Narrative Exam Narrative: GENERAL: in no distress, not toxic not dyspneic HEAD: Normocephalic. EYES: Pupils equal round ENT: Mucous membranes moist. NECK: Trachea midline. CARDIOVASCULAR: Regular rate and rhythm without murmurs RESPIRATORY: Clear to auscultation. Breath sounds equal bilaterally. No wheezes, rales, or rhonchi. GASTROINTESTINAL: Abdomen soft, non-tender EXTREMITIES: Examination of the left hand. There is near complete amputation of the distal phalanx of the left thumb. Bone exposed tendon exposed. There is near complete amputation at the mid proximal phalanx of the index finger. Bony fragments exposed. As well as muscle. Bleeding is controlled. Laceration is predominantly on the volar surface/palmar surface. BACK: No flank tenderness. NEURO: AOx4. SKIN: Warm and dry PSYCH: Not anxious, is cooperative Initial Vital Signs Initial Vital Signs: Vital Signs Temperature 99.1 F 09/16/22 16:48 Pulse Rate 89 09/16/22 16:48 Respiratory Rate 22 09/16/22 16:48 Blood Pressure 170/82 H 09/16/22 16:48 Pulse Oximetry 98 09/16/22 16:48 Oxygen Delivery Method Room Air 09/16/22 16:48 Course Orders Ordered: Discontinued Medications Fentanyl (Fentanyl 100 Mcg/2 Ml Inj) 50 mcg IV Q15MIN PRN PRN Reason: Pain, Severe (7-10) Stop: 09/19/22 18:49 Last Admin: 09/16/22 19:15 Dose: 50 mcg Documented By: Admin: 09/16/22 18:54 Dose: 50 mcg Documented By: SHANNAN Hydromorphone HCl (Hydromorphone 0.5 Mg Inj) 0.5 mg IV NOW ONE Stop: 09/16/22 16:41 Last Admin: 09/16/22 16:54 Dose: 0.5 mg Documented By: DMITRY Hydromorphone HCl (Hydromorphone 0.5 Mg Inj) 0.5 mg IV NOW ONE Stop: 09/16/22 17:55 Last Admin: 09/16/22 18:01 Dose: 0.5 mg Documented By: DERICK Cefazolin Sodium 1 gm/ Sodium (Chloride) 100 mls @ 200 mls/hr IV NOW ONE Stop: 09/16/22 17:17 Last Infusion: 09/16/22 17:46 Dose: 0 mls/hr Documented By: Admin: 09/16/22 16:54 Dose: 200 mls/hr Documented By: DMITRY Vital Signs Vital signs: Vital Signs - 8 hr 09/16/22 16:48 09/16/22 17:22 09/16/22 17:13 Temperature 99.1 F Pulse Rate 89 88 Respiratory Rate 22 Blood Pressure 170/82 H Pulse Oximetry 98 97 Oxygen Delivery Method Room Air Room Air 09/16/22 17:30 09/16/22 17:46 09/16/22 17:46 Temperature Pulse Rate 77 86 Respiratory Rate Blood Pressure 198/95 H Pulse Oximetry 97 97 Oxygen Delivery Method MDM - Extremity Injury (Upper) Lab Data 09/16/22 16:40 09/16/22 16:40 Labs: Lab Results 09/16/22 09/16/22 09/16/22 Range/Units 16:40 16:40 17:04 WBC 7.3 (4.5-11.0) X10^3/uL RBC 5.30 (4.5-5.9) X10^6/uL Hgb 16.5 (13.5-17.5) g/dL Hct 45.9 (41-53) % MCV 86.6 (80-100) fL MCH 31.2 (26-34) PG MCHC 36.0 (30-36) % RDW 12.7 (11.6-14.8) % Plt Count 193 (150-400) X10^3/uL Neut % (Auto) 59.6 (50-75) % Lymph % (Auto) 30.6 (25-40) % [place] % (Auto) 8.0 (3-14) % Eos % (Auto) 1.1 L (2-4) % Baso % (Auto) 0.7 (0-2) % Neut # (Auto) 4400 (0245-2247) /uL Lymph # (Auto) 2200 (8488-7206) /uL [place] # (Auto) 600 (0-900) /uL Eos # (Auto) 100 (0-450) /uL Baso # (Auto) 0 (0-100) /uL Sodium 138 (137-145) mmol/L Potassium 3.7 (3.4-5.1) mmol/L Chloride 101 (98-107) mmol/L Carbon Dioxide 24 (22-32) mmol/L BUN 16 (9-20) mg/dL Creatinine 0.94 (0.66-1.25) mg/dL Estimated GFR > 60 (>60) mL/min BUN/Creatinine Ratio 17.0 (6-22) Glucose 215 H (70-100) mg/dL Calcium 9.5 (8.4-10.2) mg/dL Total Bilirubin 1.1 (0.2-1.3) mg/dL AST 27 (17-59) IU/L ALT 24 (<50) IU/L Alkaline Phosphatase 70 (38-126) U/L Total Protein 8.2 (6.3-8.2) g/dL Albumin 4.8 (3.5-5.0) g/dL Globulin 3.4 (1.7-4.1) g/dL Albumin/Globulin Ratio 1.4 (1.0-2.8) SARS-CoV-2 (PCR) (Negative) Blood Type O Positive Antibody Screen Negative 09/16/22 Range/Units 17:32 WBC (4.5-11.0) X10^3/uL RBC (4.5-5.9) X10^6/uL Hgb (13.5-17.5) g/dL Hct (41-53) % MCV (80-100) fL MCH (26-34) PG MCHC (30-36) % RDW (11.6-14.8) % Plt Count (150-400) X10^3/uL Neut % (Auto) (50-75) % Lymph % (Auto) (25-40) % [place] % (Auto) (3-14) % Eos % (Auto) (2-4) % Baso % (Auto) (0-2) % Neut # (Auto) (4757-4719) /uL Lymph # (Auto) (4832-3838) /uL [place] # (Auto) (0-900) /uL Eos # (Auto) (0-450) /uL Baso # (Auto) (0-100) /uL Sodium (137-145) mmol/L Potassium (3.4-5.1) mmol/L Chloride (98-107) mmol/L Carbon Dioxide (22-32) mmol/L BUN (9-20) mg/dL Creatinine (0.66-1.25) mg/dL Estimated GFR (>60) mL/min BUN/Creatinine Ratio (6-22) Glucose (70-100) mg/dL Calcium (8.4-10.2) mg/dL Total Bilirubin (0.2-1.3) mg/dL AST (17-59) IU/L ALT (<50) IU/L Alkaline Phosphatase (38-126) U/L Total Protein (6.3-8.2) g/dL Albumin (3.5-5.0) g/dL Globulin (1.7-4.1) g/dL Albumin/Globulin Ratio (1.0-2.8) SARS-CoV-2 (PCR) Negative (Negative) Blood Type Antibody Screen Imaging Data Extremity x-ray #1: Radiologist's Impression: PROCEDURE:? XR HAND LT MIN 3V ? INDICATIONS:? amputation, trauma ? TECHNIQUE:? 3 views of the hand(s) acquired.? ? COMPARISON:? None. ? FINDINGS: Soft tissue maceration and severely comminuted fracture noted at the mid 2nd proximal phalanx as well as at the interphalangeal joint of the thumb.? No radiopaque foreign body.? Third 4th and 5th digits unremarkable ? ? IMPRESSION:? ? Severe soft tissue maceration and comminuted fracture 1st and 2nd digits ? ? ? Approved by: Scott Dooley M.D. on 09/16/2022 at 16:21? [facility] Narrative Medical decision making narrative: After history and exam CBC CMP x-ray left hand Dilaudid Ancef [facility] CC: Finger amputation Complicating co-morbidities: None Data collected from: Patient and Medical records reviewed: No recent visits for this complaint Differential considered: Includes but not limited to thumb and finger amputation Exam documented above, pertinent findings include: Partial amputation of thumb and finger Lab Test results independently reviewed as above. Pertinent findings: Hemoglobin 16 hematocrit 45 platelets 193 Imaging studies independently reviewed: X-ray left hand fracture through the distal phalanx of the thumb, fracture through the shaft of the proximal phalanx of the index finger Consultations: 5:45 p.m.. Spoke with Orthopedics Dr. Quiroz, he has reviewed the films. He would like patient transferred to [place]. 6:[address] Madrigal hand surgery with [facility], he would like patient's sent to their emergency department. Treatments: Ancef [place] Re-evaluations: 5:20 p.m.. Pain is controlled. Patient aware awaiting for and surgeon to call back 5:50 p.m.. Spoke with patient and . They understand that on-call orthopedics would like him to be transferred to [facility] Discussion: Appropriate for transfer for surgical consult/procedure by Orthopedics/hand surgery, will need [facility] services Diagnosis: Finger amputation thumb amputation Discharge Plan Departure Patient Disposition: [facility] Clinical Impression: Amputation of finger and thumb of left hand Prescriptions: No Action diphenhydramine-acetaminophen [Tylenol PM Extra Strength] 25-500 mg Tablet 1 tab PO BEDTIME Referrals: Efrem Monzon MD [Primary Care Provider] -
[2022-09-16 18:04] LABS: COVID19 -Nasal RAPID Negative (Negative)
--- NOTE | 2022-09-16 18:34 | PC.NURSE ---
+ blood loss @ 250 cc noted w/ active bleeding, pressure placed w/ wet to dry dressing and wanda wrap to left hand. Dr. Fuller aware.
[2022-09-16] MEDS: fentaNYL 100 MCG/2 ML INJ 50 MCG IV ×2 (18:54→19:15)
== END 2022-09-16 19:46 | disposition short-term general hospital (02) ==
PROVIDERS: Emergency Provider Emergency Medicine; PCP Preventive Medicine Public Health & General Preventive Medicine
DX: S68.022A Partial traumatic metacarpophalangeal amputation of left thumb, initial encounter (principal); S68.121A Partial traumatic metacarpophalangeal amputation of left index finger, initial encounter; W27.0XXA Contact with workbench tool, initial encounter; Z20.822 Contact with and (suspected) exposure to COVID-19
CPT/HCPCS: 36415; 73130; 80053; 85025; 86850; 86900; 86901; 87635; 96365; 96375; 96376; 99285; C9803; J0690; J1170; J3010

== ENCOUNTER → 2024-06-29 10:08 | Outpatient (CLI) | payer BC, SELFPAY ==
[2021-08-09 06:07] VITALS: BMI 25.6
[2024-06-29 10:56] LABS: Influenza A - CEPHEID Flu A POSITIVE (NEGATIVE); Influenza B - CEPHEID Flu B NEGATIVE (NEGATIVE); Respiratory Syncytial Virus Negative (Negative)
[2024-06-29 11:15] LABS: COVID-19 CEPHEID 4-PLEX PCR Negative (Negative)
== END ==
PROVIDERS: PCP Preventive Medicine Public Health & General Preventive Medicine; Visit Provider Nurse Practitioner Family
DX: R05.9 Cough, unspecified (principal); R52 Pain, unspecified
CPT/HCPCS: 0241U

== ENCOUNTER → 2024-06-29 10:28 | Outpatient (CLI) | payer BC, SELFPAY ==
[2021-08-09 06:07] VITALS: BMI 25.6
--- NOTE | 2024-06-29 10:32 | DI.RAD.S_ITS ---
PROCEDURE: XR CHEST 2V INDICATIONS: Cough TECHNIQUE: 2 views of the chest were acquired. COMPARISON: [facility], CR, XR CHEST 2V, 08/08/2021, 16:22. FINDINGS: Surgical changes and devices: None. Lungs and pleura: Lungs are clear. No pleural effusions or pneumothorax. Mediastinum: Mediastinal contours are normal. Heart size is normal. Bones and chest wall: No suspicious bony abnormalities. Soft tissues appear unremarkable. IMPRESSION: No acute cardiopulmonary abnormality is seen. Approved by: Scott Dooley M.D. on 06/29/2024 at 10:12
== END ==
PROVIDERS: PCP Preventive Medicine Public Health & General Preventive Medicine; Referring Provider Nurse Practitioner Family; Visit Provider Nurse Practitioner Family
DX: R05.9 Cough, unspecified (principal); R52 Pain, unspecified
CPT/HCPCS: 0241U; 71046

== ENCOUNTER → 2025-04-22 09:03 | Outpatient (CLI) | payer BC, SELFPAY ==
[2021-08-09 06:07] VITALS: BMI 25.6
[2025-04-22 11:00] LABS: COVID-19 CEPHEID 4-PLEX PCR Negative (Negative); Influenza A - CEPHEID Flu A NEGATIVE (NEGATIVE); Influenza B - CEPHEID Flu B NEGATIVE (NEGATIVE)
== END ==
PROVIDERS: PCP Family Medicine; Visit Provider Physician Assistant Medical
DX: R05.1 Acute cough (principal)
CPT/HCPCS: 87637